=== PATIENT | male | born 1945 | race African-American/Black ===

== ENCOUNTER 2016-10-14 13:29 | Inpatient (IN) | payer MEDICARE, OTHER ==
[2016-10-14] VITALS (8 sets, daily range): BP systolic 97–131; BP diastolic 35–54
[~2016-10-14] VITALS: Ht 167.6 cm; Wt 63.5 kg
[2016-10-14 13:55] LABS: BASOPHILS % (AUTO) 0.9 % (0.0-2.0); LYMPHOCYTES % (AUTO) 5.8 % (20.0-45.0); MEAN CORPUSCULAR HEMOGLOBIN 29.9 PG (27.0-31.0); MEAN CORPUSCULAR VOLUME 96 FL (80-99); MEAN PLATELET VOLUME 7.9 FL (6.5-10.1); MONOCYTES % (AUTO) 10.5 % (1.0-10.0); NEUTROPHILS % (AUTO) 82.7 % (45.0-75.0); PLATELET COUNT 218 K/UL (150-450); RED BLOOD COUNT 3.97 M/UL (4.70-6.10); RED CELL DISTRIBUTION WIDTH 12.5 % (11.6-14.8)
[2016-10-14 14:14] LABS: ALBUMIN/GLOBULIN RATIO 0.9 (1.0-2.7); CALCIUM 8.2 mg/dL (8.6-10.2); CREATININE 1.3 mg/dL (0.7-1.2); GLOMERULAR FILTRATION RATE 54.9 mL/min (>60); POTASSIUM 3.7 mEQ/L (3.4-4.9); TOTAL PROTEIN 7.6 g/dL (6.6-8.7); TROPONIN I < 0.30 ng/mL (<=0.30)
--- NOTE | 2016-10-14 14:28 | Emergency Room Report ---
History of Present Illness General Chief Complaint: Dyspnea/Respdistress Source: EMS (RAGHAVENDRA NAVARRO M.D.) Present Illness HPI 62-year-old male brought to ED for evaluation. Per EMS patient was feeling short of breath today and increasingly weak for the last 2 days. states that patient had stroke last month. Patient was treated at [facility]. Patient was treated and subsequently discharged to home. states that patient has regained most of his weakness from the stroke. Upon arrival patient states he feels short of breath. Denies chest pain. Denies fevers or chills. Per EMS patient has increased crackles in the lungs. No other aggravating or relieving factors. Denies any other associated symptoms (RAGHAVENDRA NAVARRO M.D.) Allergies: Coded Allergies: No Known Allergies (Unverified , 10/14/16) Patient History Past Medical History: DM, HTN, CVA/TIA Pertinent Family History: none Social History: Denies: alcohol use, drug use, smoking Immunizations: UTD Reviewed Nursing Documentation: PMH: Agreed, PSxH: Agreed (RAGHAVENDRA NAVARRO M.D.) Nursing Documentation-PMH Past Medical History: No History, Except For Hx Cardiac Problems: Yes Hx Hypertension: Yes Hx Diabetes: Yes Hx Cerebrovascular Accident: Yes (RAGHAVENDRA NAVARRO M.D.) Review of Systems All Other Systems: negative except mentioned in HPI (RAGHAVENDRA NAVARRO M.D.) Physical Exam Vital Signs Date Time Temp Pulse Resp B/P Pulse Ox O2 Delivery O2 Flow Rate FiO2 10/14/16 13:20 100.8 110 36 135/68 98 Non-Rebreather 15.0 Sp02 EP Interpretation: reviewed, normal General Appearance: lethargic, thin Head: normocephalic ENT: normal ENT inspection, normal voice Respiratory: decreased breath sounds, crackles Cardiovascular #1: no edema, tachycardia Gastrointestinal: normal bowel sounds, non tender, soft, non-distended, no guarding, no rebound Rectal: deferred Genitourinary: no CVA tenderness Musculoskeletal: normal inspection Neurologic: responsive, motor strength/tone normal, sensory intact, speech normal, other - lethargic Psychiatric: other - lethargic Skin: normal inspection Lymphatic: normal inspection (RAGHAVENDRA NAVARRO M.D.) Medical Decision Making Diagnostic Impression: Primary Impression: Pneumonia Qualified Codes: J18.9 - Pneumonia, unspecified organism Additional Impression: ARF (acute renal failure) Qualified Codes: N17.9 - Acute kidney failure, unspecified Labs Test 10/14/16 13:40 White Blood Count 17.0 K/UL (4.8-10.8) Red Blood Count 3.97 M/UL (4.70-6.10) Hemoglobin 11.9 G/DL (14.2-18.0) Hematocrit 38.2 % (42.0-52.0) Mean Corpuscular Volume 96 FL (80-99) Mean Corpuscular Hemoglobin 29.9 PG (27.0-31.0) Mean Corpuscular Hemoglobin Concent 31.0 G/DL (32.0-36.0) Red Cell Distribution Width 12.5 % (11.6-14.8) Platelet Count 218 K/UL (150-450) Mean Platelet Volume 7.9 FL (6.5-10.1) Neutrophils (%) (Auto) 82.7 % (45.0-75.0) Lymphocytes (%) (Auto) 5.8 % (20.0-45.0) Monocytes (%) (Auto) 10.5 % (1.0-10.0) Eosinophils (%) (Auto) 0.0 % (0.0-3.0) Basophils (%) (Auto) 0.9 % (0.0-2.0) Sodium Level 144 mEQ/L (135-145) Potassium Level 3.7 mEQ/L (3.4-4.9) Chloride Level 97 mEQ/L (98-107) Carbon Dioxide Level 26 mEQ/L (20-30) Anion Gap 21 (5-15) Blood Urea Nitrogen 33 mg/dL (7-23) Creatinine 1.3 mg/dL (0.7-1.2) Estimat Glomerular Filtration Rate 54.9 mL/min (>60) Glucose Level 201 mg/dL (74-106) Lactic Acid Level 1.20 mmol/L (0.66-2.22) Calcium Level 8.2 mg/dL (8.6-10.2) Total Bilirubin 0.3 mg/dL (0.0-1.2) Aspartate Amino Transf (AST/SGOT) 89 U/L (5-40) Alanine Aminotransferase (ALT/SGPT) 25 U/L (3-41) Alkaline Phosphatase 90 U/L (40-129) Creatine Kinase MB 4.0 ng/mL (< 6.7) Troponin I < 0.30 ng/mL (<=0.30) Pro-B-Type Natriuretic Peptide 536 pg/mL (0-125) Total Protein 7.6 g/dL (6.6-8.7) Albumin 3.7 g/dL (3.5-5.2) Globulin 3.9 g/dL Albumin/Globulin Ratio 0.9 (1.0-2.7) (RAGHAVENDRA NAVARRO M.D.) ER Course See note from Dr. Navarro. Patient with respiratory failure. BIPAP ordered and O2 sats better. Attempt to discuss intubation (not needed). never discussed and patient does not seem to understand. Patient febrile. Tylenol ordered and continued hydration. Vancomycin ordered as patient with recent hospitalization. Discussed with Rodrigo HURST ([place]). Patient re-examined before going to ICU. Easily roused, not speaking. Airway stable at this time. (Anastacio Sparks M.D.) EKG Diagnostic Results Rate: tachycardiac Rhythm: NSR ST Segments: no acute changes ASA given to the pt in ED: No (RAGHAVENDRA NAVARRO M.D.) Rhythm Strip Diag. Results EP Interpretation: yes Rhythm: NSR, no PVC's, no ectopy (RAGHAVENDRA NAVARRO M.D.) Chest X-Ray Diagnostic Results EP Interpretation: Yes Findings: no pneumothorax, no acute cardiopulmonary disease, other - RLL infiltrate Number of Views: 1 (RAGHAVENDRA NAVARRO M.D.) Last Vital Signs Date Time Temp Pulse Resp B/P Pulse Ox O2 Delivery O2 Flow Rate FiO2 10/14/16 13:52 113 43 119/51 100 Non-Rebreather 15.0 10/14/16 13:20 100.8 Status: improved (RAGHAVENDRA NAVARRO M.D.) Last Vital Signs Date Time Temp Pulse Resp B/P Pulse Ox O2 Delivery O2 Flow Rate FiO2 10/14/16 16:48 102 33 100/87 99 Bi-pap 80 10/14/16 15:58 102.0 10/14/16 14:45 15.0 Status: improved (Anastacio Sparks M.D.) Disposition: ADMITTED INPATIENT Condition: Critical Referrals: [facility] (PCP) RAGHAVENDRA NAVARRO M.D. Oct 14, 2016 14:28 Anastacio Sparks M.D. Oct 14, 2016 15:24
[2016-10-14 14:54] LABS: ABG ALLEN TEST POSITIVE; ABG BASE EXCESS -1.8; ABG PCO2 71.7 mmHg (35.0-45.0)
[2016-10-14] MEDS ORDERED: Azithromycin 500 MG in NS 275 ML IV ONE (15:00)
[2016-10-14] MEDS ORDERED: Cefepime HCl 1 GM in NS 55 ML IV ONE (15:00)
[2016-10-14] MEDS ORDERED: Azithromycin Inj IV ONE (15:03)
[2016-10-14] MEDS ORDERED: Tubing IV Secondary IV ONE (15:04)
[2016-10-14] MEDS ORDERED: Cefepime 1gm vial ONE (15:04)
[2016-10-14] MEDS ORDERED: NS 275 ML ONE (15:04)
[2016-10-14] MEDS ORDERED: NS 55 ML IV ONE (15:04)
[2016-10-14] MEDS ORDERED: Tubing IV Cassette IV ONE (15:04)
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
[2016-10-14] MEDS ORDERED: Acetaminophen 650 MG SUPP RECTAL ONE (15:15)
[2016-10-14] MEDS ORDERED: Vancomycin 1 GM in D5W 275 ML IVPB ONE (15:15)
[2016-10-14] MEDS ORDERED: RISPERDAL1 MG PO (15:20)
[2016-10-14] MEDS ORDERED: PHENYTOIN100 MG/4 M ORAL (15:20)
[2016-10-14] MEDS ORDERED: METFORMIN HCL850 M1 ORAL (15:20)
[2016-10-14] MEDS ORDERED: ATORVASTATIN CA20 MG ORAL (15:20)
[2016-10-14] MEDS ORDERED: LISINOPRIL10 MG ORAL (15:20)
[2016-10-14] MEDS ORDERED: PHENOBARBITAL30 MG ORAL (15:20)
[2016-10-14] MEDS ORDERED: GLIPIZIDE5 MG ORAL (15:20)
[2016-10-14] MEDS ORDERED: CLOPIDOGREL75 MG ORAL (15:20)
[2016-10-14] MEDS ORDERED: ZANTAC150 MG ORAL (15:21)
[2016-10-14] MEDS ORDERED: URSODIOL300 MG ORAL (15:21)
[2016-10-14] MEDS ORDERED: AMLODIPINE BESY10 MG ORAL (15:21)
[2016-10-14] MEDS ORDERED: OXYCODONE HCL5 M2 ORAL (15:21)
[2016-10-14 15:22] LABS: APPEARANCE,URINE CLEAR; KETONES,URINE 3+ (NEGATIVE); LEUKOCYTE ESTERASE ,URINE NEGATIVE (NEGATIVE); NITRITE,URINE NEGATIVE (NEGATIVE); PH,URINE 5 (4.5-8.0); PROTEIN,URINE 3+ (NEGATIVE); UROBILINOGEN,URINE NORMAL MG/DL (0.0-1.0)
[2016-10-14 15:51] LABS: AMORPHOUS SEDIMENT,UR MODERATE /LPF; BACTERIA,URINE MODERATE /HPF
[2016-10-14] MEDS ORDERED: Vancomycin 1gm inj IVPB ONE (16:37)
--- NOTE | 2016-10-14 17:21 | Pulmonolgy Critical Care Note ---
Critical Care - Asmt/Plan Problems: (1) Respiratory failure, acute (2) ARF (acute renal failure) (3) Pneumonia Respiratory: monitor respiratory rate, adjust FIO2, CXR Cardiac: continue to monitor HR/BP Renal: F/U I&O, keep IV fluid, check electrolytes Infectious Disease: check cultures, continue antibiotics Gastrointestinal: continue feedings/current rate Endocrine: monitor blood sugar, continue sliding scale insulin Hematologic: monitor H/H, transfuse if hgb<8.5 Neurologic: PRN Ativan, PRN Morphine, keep patient comfortable Prophylaxis: Protonix, Heparin Discussed with: consultants, case linerutility manager - Objective Last 24 Hour Vital Signs Date Time Temp Pulse Resp B/P Pulse Ox O2 Delivery O2 Flow Rate FiO2 10/14/16 16:48 102 33 100/87 99 Bi-pap 80 10/14/16 16:40 101 32 100 Facial 60 10/14/16 15:58 102.0 10/14/16 15:44 80 10/14/16 15:10 106 31 Bi-pap 100 10/14/16 15:10 106 31 99 Facial 80 10/14/16 15:09 103 26 131/53 99 Bi-pap 80 10/14/16 14:45 103.3 112 40 125/49 100 Non-Rebreather 15.0 10/14/16 13:52 113 43 119/51 100 Non-Rebreather 15.0 10/14/16 13:47 113 43 Non-Rebreather 15.0 10/14/16 13:20 100.8 110 36 135/68 98 Non-Rebreather 15.0 Status: awake Condition: critical, grave Neck: full ROM Lungs: clear Heart: HR/BP stable, HR/BP unstable Abdomen: soft, non-tender, feeding tube Extremities: no C/C/E, edema Critical Care - Subjective ICU Day: 1 Interval Events: 62-year-old male brought to ED for evaluation of short of breath today and increasingly weak for the last 2 days. states that patient had stroke last month. states that patient has regained most of his weakness from the stroke. Upon arrival patient states he feels short of breath. He was in respiratory failure and was put on bipap and transferred to ICU. FI02: 80 Vent Support Breath Rate: 10 Sputum Amount: None CXR: RLL infiltrate Labs: Laboratory Tests Test 10/14/16 13:40 10/14/16 14:45 10/14/16 14:48 White Blood Count 17.0 K/UL (4.8-10.8) H Red Blood Count 3.97 M/UL (4.70-6.10) L Hemoglobin 11.9 G/DL (14.2-18.0) L Hematocrit 38.2 % (42.0-52.0) L Mean Corpuscular Volume 96 FL (80-99) Mean Corpuscular Hemoglobin 29.9 PG (27.0-31.0) Mean Corpuscular Hemoglobin Concent 31.0 G/DL (32.0-36.0) L Red Cell Distribution Width 12.5 % (11.6-14.8) Platelet Count 218 K/UL (150-450) Mean Platelet Volume 7.9 FL (6.5-10.1) Neutrophils (%) (Auto) 82.7 % (45.0-75.0) H Lymphocytes (%) (Auto) 5.8 % (20.0-45.0) L Monocytes (%) (Auto) 10.5 % (1.0-10.0) H Eosinophils (%) (Auto) 0.0 % (0.0-3.0) Basophils (%) (Auto) 0.9 % (0.0-2.0) Sodium Level 144 mEQ/L (135-145) Potassium Level 3.7 mEQ/L (3.4-4.9) Chloride Level 97 mEQ/L (98-107) L Carbon Dioxide Level 26 mEQ/L (20-30) Anion Gap 21 (5-15) H Blood Urea Nitrogen 33 mg/dL (7-23) H Creatinine 1.3 mg/dL (0.7-1.2) H Estimat Glomerular Filtration Rate 54.9 mL/min (>60) Glucose Level 201 mg/dL (74-106) H Lactic Acid Level 1.20 mmol/L (0.66-2.22) Calcium Level 8.2 mg/dL (8.6-10.2) L Total Bilirubin 0.3 mg/dL (0.0-1.2) Aspartate Amino Transf (AST/SGOT) 89 U/L (5-40) H Alanine Aminotransferase (ALT/SGPT) 25 U/L (3-41) Alkaline Phosphatase 90 U/L (40-129) Total Creatine Kinase 4581 U/L (38-174) H Creatine Kinase MB 4.0 ng/mL (< 6.7) Creatine Kinase MB Relative Index 0.0 Troponin I < 0.30 ng/mL (<=0.30) Pro-B-Type Natriuretic Peptide 536 pg/mL (0-125) H Total Protein 7.6 g/dL (6.6-8.7) Albumin 3.7 g/dL (3.5-5.2) Globulin 3.9 g/dL Albumin/Globulin Ratio 0.9 (1.0-2.7) L Urine Color Pale yellow Urine Appearance Clear Urine pH 5 (4.5-8.0) Urine Specific [place] 1.025 (1.005-1.035) Urine Protein 3+ (NEGATIVE) H Urine Glucose (UA) Negative (NEGATIVE) Urine Ketones 3+ (NEGATIVE) H Urine Occult Blood 5+ (NEGATIVE) H Urine Nitrite Negative (NEGATIVE) Urine Bilirubin Negative (NEGATIVE) Urine Urobilinogen Normal MG/DL (0.0-1.0) Urine Leukocyte Esterase Negative (NEGATIVE) Urine RBC 10-15 /HPF (0 - 0) H Urine WBC 5-10 /HPF (0 - 0) H Urine Squamous Epithelial Cells None /LPF (NONE/OCC) Urine Amorphous Sediment Moderate /LPF (NONE) H Urine Bacteria Moderate /HPF (NONE) H Arterial Blood pH 7.201 (7.350-7.450) Arterial Blood Partial Pressure CO2 71.7 mmHg (35.0-45.0) *H Arterial Blood Partial Pressure O2 95.3 mmHg (75.0-100.0) Arterial Blood HCO3 27.5 mmol/L (22.0-26.0) H Arterial Blood Oxygen Saturation 94.9 % (92.0-98.0) Arterial Blood Base Excess -1.8 Hi Test Positive BELTRAN OROSCO Oct 14, 2016 17:20
[2016-10-14] MEDS ORDERED: Nitroglycerin Subl 0.4mg tab (Bottle Of 25) SL PRN (17:30)
[2016-10-14] MEDS ORDERED: Miralax 17gm pkt ORAL PRN (17:30)
[2016-10-14] MEDS ORDERED: DuoNeb 0.5-3(2.5)mg/3ml neb HHN PRN (17:30)
[2016-10-14] MEDS ORDERED: Mylanta II UD 30ml ORAL PRN (17:30)
[2016-10-14] MEDS: Vancomycin 1gm in D5W 275ml IVPB SCH (20:24)
[2016-10-14] MEDS: Phenytoin Susp 100mg/4ml ORAL SCH (20:32)
[2016-10-14] MEDS: PHENobarbital 32.4mg tab ORAL SCH (20:55)
[2016-10-14] MEDS: NovoLOG Insulin Flexpen SUBQ SCH (20:58)
[2016-10-14] MEDS: Heparin 5000 units/ml inj SUBQ SCH (21:00)
[2016-10-14] MEDS ORDERED: Cefepime HCl 1 GM in D5W 55 ML IV SCH (22:00)
[2016-10-15] VITALS (29 sets, daily range): BP systolic 54–160; BP diastolic 23–66
[2016-10-15 05:50] LABS: MEAN CORPUSCULAR HEMOGLOBIN 29.9 PG (27.0-31.0); MEAN CORPUSCULAR HGB CONC 30.6 G/DL (32.0-36.0); MEAN CORPUSCULAR VOLUME 98 FL (80-99); MEAN PLATELET VOLUME 8.1 FL (6.5-10.1); PLATELET COUNT 178 K/UL (150-450); RED CELL DISTRIBUTION WIDTH 12.7 % (11.6-14.8); WHITE BLOOD COUNT 20.6 K/UL (4.8-10.8)
[2016-10-15 06:00] LABS: INR 1.3 (0.9-1.1); PROTHROMBIN TIME 12.8 SEC (9.30-11.50)
[2016-10-15 06:05] LABS: ALBUMIN/GLOBULIN RATIO 0.7 (1.0-2.7); CALCIUM 7.1 mg/dL (8.6-10.2); GLOMERULAR FILTRATION RATE 40.5 mL/min (>60); MAGNESIUM 1.4 mg/dL (1.7-2.5); POTASSIUM 4.3 mEQ/L (3.4-4.9); TOTAL PROTEIN 6.2 g/dL (6.6-8.7)
[2016-10-15] MEDS: NovoLOG Insulin Flexpen SUBQ SCH ×4 (06:08→20:37)
[2016-10-15 08:14] LABS: BAND NEUTROPHILS % (MANUAL) 3 % (0-8); LYMPHOCYTES % (MANUAL) 12 % (20-45); NEUTROPHILS % (MANUAL) 75 % (45-75); TOTAL CELLS COUNTED 100
[2016-10-15 08:15] LABS: BASOPHILS % (MANUAL) 0 % (0-2); EOSINOPHILS % (MANUAL) 0 % (0-3); PLATELET ESTIMATE ADEQUATE; PLATELET MORPHOLOGY NORMAL
[2016-10-15 08:17] LABS: HYPOCHROMASIA 1+
[2016-10-15] MEDS: PHENobarbital 32.4mg tab ORAL SCH ×3 (09:00→17:09)
[2016-10-15] MEDS: Phenytoin Susp 100mg/4ml ORAL SCH ×3 (10:00→17:08)
[2016-10-15] MEDS: Heparin 5000 units/ml inj SUBQ SCH ×2 (10:03→20:36)
--- NOTE | 2016-10-15 10:41 | Pulmonology Progress Note ---
Assessment/Plan Problems: (1) Respiratory failure, acute (2) ARF (acute renal failure) (3) Pneumonia (4) History of CVA (cerebrovascular accident) Assessment/Plan titrate bipap keep in icu check sputum titrate fio2 to sat of 92% chest Pt will need swallow study when better. Subjective Interval Events: on bipap, looks comfortable Allergies: Coded Allergies: No Known Allergies (Unverified , 10/14/16) Objective Last 24 Hour Vital Signs Date Time Temp Pulse Resp B/P Pulse Ox O2 Delivery O2 Flow Rate FiO2 10/15/16 10:05 106 16 136/66 98 Bi-pap 60 10/15/16 09:03 103 17 99 Facial 60 10/15/16 09:00 106 119/57 10/15/16 09:00 102 27 157/58 97 Bi-pap 60 10/15/16 08:00 102 10/15/16 08:00 98.8 109 20 143/58 98 Bi-pap 60 10/15/16 08:00 60 10/15/16 07:29 105 36 95 Facial 60 10/15/16 07:07 98 30 160/56 98 Bi-pap 60 10/15/16 06:00 94 33 122/54 98 Bi-pap 60 10/15/16 05:13 96 46 99 Facial 60 10/15/16 05:00 94 32 116/46 100 Bi-pap 60 10/15/16 04:00 60 10/15/16 04:00 94 10/15/16 04:00 99.3 90 33 123/63 97 Bi-pap 60 10/15/16 03:30 100 52 96 Facial 60 10/15/16 03:00 95 28 108/55 97 Bi-pap 60 10/15/16 02:00 92 32 115/50 96 Bi-pap 60 10/15/16 01:01 95 30 107/50 95 Bi-pap 60 10/15/16 00:58 94 41 96 Facial 60 10/15/16 00:00 95 10/15/16 00:00 60 10/15/16 00:00 99.8 100 35 113/48 95 Bi-pap 60 10/14/16 23:19 90 44 95 Facial 60 10/14/16 23:00 95 32 101/45 94 Bi-pap 60 10/14/16 22:00 98 33 117/35 93 Bi-pap 60 10/14/16 21:00 90 32 108/36 93 Bi-pap 60 10/14/16 20:34 96 45 97 Facial 60 10/14/16 20:18 90 10/14/16 20:15 60 10/14/16 20:14 60 10/14/16 20:00 99.2 92 25 97/45 97 Bi-pap 60 10/14/16 19:06 100 44 99 Facial 60 10/14/16 19:00 100 24 104/54 97 Bi-pap 60 10/14/16 16:48 102 33 100/87 99 Bi-pap 80 10/14/16 16:40 101 32 100 Facial 60 10/14/16 15:58 102.0 10/14/16 15:44 80 10/14/16 15:10 106 31 Bi-pap 100 10/14/16 15:10 106 31 99 Facial 80 10/14/16 15:09 103 26 131/53 99 Bi-pap 80 10/14/16 14:45 103.3 112 40 125/49 100 Non-Rebreather 15.0 10/14/16 13:52 113 43 119/51 100 Non-Rebreather 15.0 10/14/16 13:47 113 43 Non-Rebreather 15.0 10/14/16 13:20 100.8 110 36 135/68 98 Non-Rebreather 15.0 Intake and Output 10/14/16 10/15/16 18:59 06:59 Intake Total 1955 ml 3155.208 ml Output Total 145 ml Balance 1810 ml 3155.208 ml Intake Oral 0 ml IV Total 1955 ml 3105.208 ml Other 50 ml Output Urine Total 145 ml # Voids 75 435 General Appearance: WD/WN HEENT: normocephalic, anicteric Respiratory/Chest: chest wall non-tender, accessory muscle use, crackles/rales Cardiovascular: normal peripheral pulses, normal rate Abdomen: normal bowel sounds, soft, non tender Genitourinary: normal external genitalia Extremities: no cyanosis Skin: no rash Neurologic/Psychiatric: interventional cardiologist II-XII grossly normal, no motor/sensory deficits Lymphatic: no neck adenopathy Musculoskeletal: normal muscle bulk Microbiology Date/Time Source Procedure Growth Status 10/14/16 14:45 Urine,Clean Catch Urine Culture - Preliminary NO GROWTH Resulted Laboratory Tests 10/14/16 13:40: White Blood Count 17.0H, Red Blood Count 3.97L, Hemoglobin 11.9L, Hematocrit 38.2L, Mean Corpuscular Volume 96, Mean Corpuscular Hemoglobin 29.9, Mean Corpuscular Hemoglobin Concent 31.0L, Red Cell Distribution Width 12.5, Platelet Count 218, Mean Platelet Volume 7.9, Neutrophils (%) (Auto) 82.7H, Lymphocytes (%) (Auto) 5.8L, Monocytes (%) (Auto) 10.5H, Eosinophils (%) (Auto) 0.0, Basophils (%) (Auto) 0.9, Sodium Level 144, Potassium Level 3.7, Chloride Level 97L, Carbon Dioxide Level 26, Anion Gap 21H, Blood Urea Nitrogen 33H, Creatinine 1.3H, Estimat Glomerular Filtration Rate 54.9, Glucose Level 201H, Lactic Acid Level 1.20, Calcium Level 8.2L, Total Bilirubin 0.3, Aspartate Amino Transf (AST/SGOT) 89H, Alanine Aminotransferase (ALT/SGPT) 25, Alkaline Phosphatase 90, Total Creatine Kinase 4581H, Creatine Kinase MB 4.0, Creatine Kinase MB Relative Index 0.0, Troponin I < 0.30, Pro-B-Type Natriuretic Peptide 536H, Total Protein 7.6, Albumin 3.7, Globulin 3.9, Albumin/Globulin Ratio 0.9L 10/14/16 14:45: Urine Color Pale yellow, Urine Appearance Clear, Urine pH 5, Urine Specific [place] 1.025, Urine Protein 3+H, Urine Glucose (UA) Negative, Urine Ketones 3+H , Urine Occult Blood 5+H, Urine Nitrite Negative, Urine Bilirubin Negative, Urine Urobilinogen Normal, Urine Leukocyte Esterase Negative, Urine RBC 10-15H, Urine WBC 5-10H, Urine Squamous Epithelial Cells None, Urine Amorphous Sediment ModerateH, Urine Bacteria ModerateH 10/14/16 14:48: Arterial Blood pH 7.201*L, Arterial Blood Partial Pressure CO2 71.7*H, Arterial Blood Partial Pressure O2 95.3, Arterial Blood HCO3 27.5H, Arterial Blood Oxygen Saturation 94.9, Arterial Blood Base Excess -1.8, Hi Test Positive 10/14/16 22:00: Urine Legionella Antigen [Pending] 10/15/16 04:20: White Blood Count 20.6H, Red Blood Count 3.40L, Hemoglobin 10.2L, Hematocrit 33.2L, Mean Corpuscular Volume 98, Mean Corpuscular Hemoglobin 29.9, Mean Corpuscular Hemoglobin Concent 30.6L, Red Cell Distribution Width 12.7, Platelet Count 178, Mean Platelet Volume 8.1, Neutrophils (%) (Auto) , Lymphocytes (%) (Auto) , Monocytes (%) (Auto) , Eosinophils (%) (Auto) , Basophils (%) (Auto) , Differential Total Cells Counted 100, Neutrophils % ( Manual) 75, Lymphocytes % (Manual) 12L, Monocytes % (Manual) 10, Eosinophils % ( Manual) 0, Basophils % (Manual) 0, Band Neutrophils 3, Platelet Estimate Adequate, Platelet Morphology Normal, Hypochromasia 1+, Prothrombin Time 12.8H, Prothromb Time International Ratio 1.3H, Activated Partial Thromboplast Time 36H , Sodium Level 143, Potassium Level 4.3, Chloride Level 103, Carbon Dioxide Level 17L, Anion Gap 23H, Blood Urea Nitrogen 40H, Creatinine 2.0#H, Estimat Glomerular Filtration Rate 40.5, Glucose Level 201H, Calcium Level 7.1L, Phosphorus Level 5.0H, Magnesium Level 1.4L, Total Bilirubin 0.3, Aspartate Amino Transf (AST/SGOT) 60H, Alanine Aminotransferase (ALT/SGPT) 22, Alkaline Phosphatase 76, Total Protein 6.2L, Albumin 2.7L, Globulin 3.5, Albumin/ Globulin Ratio 0.7L Current Medications Medications (Trade) Dose Ordered Sig/Obie Route PRN Reason Start Time Stop Time Status Last Admin Dose Admin Acetaminophen (Tylenol) 650 mg Q4H PRN ORAL fever 10/14/16 17:30 11/13/16 17:29 Al Hydroxide/Mg Hydroxide (Mylanta II) 30 ml Q6H PRN ORAL dyspepsia 10/14/16 17:30 11/13/16 17:29 Albuterol/ Ipratropium 3 ml 3 ml Q4H PRN HHN Shortness of Breath 10/14/16 17:30 10/19/16 17:29 Amlodipine Besylate (Norvasc) 10 mg DAILY ORAL 10/15/16 09:00 11/14/16 08:59 10/15/16 09:00 Cefepime HCl/ Dextrose (Maxipime/D5W) 55 ml @ 110 mls/hr Q24H IV 10/14/16 22:00 10/21/16 21:59 10/14/16 21:12 Clopidogrel Bisulfate (Plavix) 75 mg DAILY ORAL 10/15/16 09:00 11/14/16 08:59 10/15/16 10:00 Dextrose (Dextrose 50%) STAT PRN IV Hypoglycemia 10/14/16 17:30 11/13/16 17:29 Heparin Sodium (Porcine) (Heparin 5000 units/ml) 5,000 units EVERY 12 HOURS SUBQ 10/14/16 21:00 11/13/16 20:59 10/15/16 10:03 Insulin Aspart (NovoLOG) BEFORE MEALS AND HS SUBQ 10/14/16 21:00 11/13/16 20:59 10/15/16 06:08 Nitroglycerin (Ntg) 0.4 mg Q5MIN X 3 DOSES PRN SL Prn Chest Pain 10/14/16 17:30 11/13/16 17:29 Ondansetron HCl (Zofran) 4 mg Q6H PRN IVP Nausea & Vomiting 10/14/16 17:30 11/13/16 17:29 Phenobarbital (PHENobarbital) 32.4 mg THREE TIMES A DAY ORAL 10/14/16 18:00 11/13/16 17:59 10/15/16 09:00 Phenytoin (Dilantin) 100 mg TID ORAL 10/14/16 18:00 11/13/16 17:59 10/15/16 10:00 Polyethylene Glycol (Miralax) 17 gm DAILYPRN PRN ORAL Constipation 10/14/16 17:30 11/13/16 17:29 Risperidone (RisperDAL) 1 mg DAILY ORAL 10/15/16 09:00 11/14/16 08:59 10/15/16 10:01 Sodium Chloride (Sodium Chloride 1000ml bag) 1,000 ml @ 300 mls/hr Q3H20M IV 10/14/16 15:30 11/13/16 15:29 10/15/16 08:00 Temazepam (Restoril) 15 mg HSPRN PRN ORAL Insomnia 10/14/16 17:30 10/21/16 17:29 Vancomycin HCl 1 ea 1 ea DAILY PRN MISC Per rx protocol 10/14/16 17:30 11/13/16 17:29 Vancomycin HCl/ Dextrose (Vancomycin/D5W) 275 ml @ 183.708 mls/hr Q24H IVPB 10/14/16 20:00 10/19/16 19:59 10/14/16 20:24 BELTRAN OROSCO Oct 15, 2016 10:41
--- NOTE | 2016-10-15 11:28 | Consultation ---
Consult Note Consult Note ID Dic# [id number] SOM PEREZ M.D. Oct 15, 2016 11:28
--- NOTE | 2016-10-15 13:34 | Diagnostic Imaging Report ---
Indication: DYSPNEA Technique: One view of the chest Comparison: 10/14/2016 Findings: There is increased opacity of the right lung base, likely reflecting increased pleural fluid and/or consolidation. Hazy opacity in the left lung base persists. The heart is borderline enlarged. The aorta is tortuous and calcified Impression: Over one day, increasing pleural and/or parenchymal disease at the right lung base Other stable findings as described
[2016-10-15] MEDS: Piperacillin/Tazobactam 4.5 GM in D5W 110 ML IVPB SCH ×2 (14:04→21:57)
[2016-10-15 14:37] LABS: ABG ALLEN TEST POSITIVE; ABG BASE EXCESS -8.3
--- NOTE | 2016-10-15 14:56 | History & Physical ---
History and Physical History & Physicial The patient was seen and examined at bedside and all new and available data was reviewed in the patients chart. Last 24 Hour Vital Signs Date Time Temp Pulse Resp B/P Pulse Ox O2 Delivery O2 Flow Rate FiO2 10/15/16 14:00 119 31 136/46 98 Venturi Mask 55 10/15/16 13:00 121 32 128/51 98 Venturi Mask 55 10/15/16 12:00 98.4 117 30 127/52 88 Venturi Mask 55 10/15/16 12:00 116 10/15/16 11:00 113 32 154/50 98 Venturi Mask 55 10/15/16 10:05 106 16 136/66 98 Bi-pap 60 10/15/16 09:03 103 17 99 Facial 60 10/15/16 09:00 106 119/57 10/15/16 09:00 102 27 157/58 97 Bi-pap 60 10/15/16 08:00 102 10/15/16 08:00 98.8 109 20 143/58 98 Bi-pap 60 10/15/16 08:00 60 10/15/16 07:29 105 36 95 Facial 60 10/15/16 07:07 98 30 160/56 98 Bi-pap 60 10/15/16 06:00 94 33 122/54 98 Bi-pap 60 10/15/16 05:13 96 46 99 Facial 60 10/15/16 05:00 94 32 116/46 100 Bi-pap 60 10/15/16 04:00 60 10/15/16 04:00 94 10/15/16 04:00 99.3 90 33 123/63 97 Bi-pap 60 10/15/16 03:30 100 52 96 Facial 60 10/15/16 03:00 95 28 108/55 97 Bi-pap 60 10/15/16 02:00 92 32 115/50 96 Bi-pap 60 10/15/16 01:01 95 30 107/50 95 Bi-pap 60 10/15/16 00:58 94 41 96 Facial 60 10/15/16 00:00 95 10/15/16 00:00 60 10/15/16 00:00 99.8 100 35 113/48 95 Bi-pap 60 10/14/16 23:19 90 44 95 Facial 60 10/14/16 23:00 95 32 101/45 94 Bi-pap 60 10/14/16 22:00 98 33 117/35 93 Bi-pap 60 10/14/16 21:00 90 32 108/36 93 Bi-pap 60 10/14/16 20:34 96 45 97 Facial 60 10/14/16 20:18 90 10/14/16 20:15 60 10/14/16 20:14 60 10/14/16 20:00 99.2 92 25 97/45 97 Bi-pap 60 10/14/16 19:06 100 44 99 Facial 60 10/14/16 19:00 100 24 104/54 97 Bi-pap 60 10/14/16 16:48 102 33 100/87 99 Bi-pap 80 10/14/16 16:40 101 32 100 Facial 60 10/14/16 15:58 102.0 10/14/16 15:44 80 10/14/16 15:10 106 31 Bi-pap 100 10/14/16 15:10 106 31 99 Facial 80 10/14/16 15:09 103 26 131/53 99 Bi-pap 80 (Patient was seen earlier today. Signature timestamp does not reflect patient encounter time) Bubba Daniels MD, MD Oct 15, 2016 14:56
[2016-10-15 15:56] LABS: ABG ALLEN TEST POSITIVE; ABG BASE EXCESS -10.6
[2016-10-15] MEDS ORDERED: Tubing IV Secondary IV ONE (17:20)
[2016-10-15] MEDS ORDERED: NS 275ml ONE (17:20)
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
[2016-10-15 19:26] LABS: ABG ALLEN TEST POSITIVE; ABG BASE EXCESS -14.3; ABG PCO2 59.6 mmHg (35.0-45.0)
[2016-10-15] MEDS: Vancomycin 1gm in D5W 275ml IVPB SCH (20:35)
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
[2016-10-15] MEDS ORDERED: Sodium Bicarbonate 150 ML in D5W 1000ml 1,000 ML IV ONE (21:00)
[2016-10-15 21:34] LABS: GLOMERULAR FILTRATION RATE 25.3 mL/min (>60); POTASSIUM 4.6 mEQ/L (3.4-4.9)
--- NOTE | 2016-10-15 21:46 | Emergency Room Report ---
History of Present Illness General Chief Complaint: Dyspnea/Respdistress Source: Family Member Present Illness Allergies: Coded Allergies: No Known Allergies (Unverified , 10/14/16) Nursing Documentation-[facility] Past Medical History: No History, Except For Hx Cardiac Problems: Yes - CVA Hx Hypertension: Yes Hx Diabetes: Yes Hx Cerebrovascular Accident: Yes Physical Exam Vital Signs Date Time Temp Pulse Resp B/P Pulse Ox O2 Delivery O2 Flow Rate FiO2 10/14/16 13:20 100.8 110 36 135/68 98 Non-Rebreather 15.0 10/14/16 15:09 80 Procedures Intubation Intubation : Consent: Emergent Time of Intubation: 08:55 Intubation Method: orotracheal Tube Size (cm): 8.0 Medications: Etomidate, Succinylcholine Breath Sounds after Intubation: equal Intubation Complications: no complications Post Intubation Xray: Yes Attempts: One Patient Tolerated: Well Complications: None Medical Decision Making Diagnostic Impression: Primary Impression: Pneumonia Qualified Codes: J18.9 - Pneumonia, unspecified organism Additional Impression: ARF (acute renal failure) Qualified Codes: N17.9 - Acute kidney failure, unspecified ER Course Was contacted and they patient. Patient was noted to increase CO2 and respiratory failure on BiPAP. Patient was discussed with Dr. Osullivan. Patient was intubated after The times one. Patient tolerated well. Last Vital Signs Date Time Temp Pulse Resp B/P Pulse Ox O2 Delivery O2 Flow Rate FiO2 10/15/16 21:22 100 10/15/16 21:18 77 16 10/15/16 21:00 54/23 96 Bi-pap 10/15/16 19:00 99.0 10/14/16 14:45 15.0 Status: unchanged Disposition: ADMITTED INPATIENT Condition: Critical Referrals: [facility] (PCP) Kobi Cortez Oct 15, 2016 21:46
[2016-10-15] MEDS: Sodium Bicarbonate 150 ML in D5W 1000ml 1,000 ML IV SCH (21:55)
[2016-10-15] MEDS ORDERED: Heparin 2000 units/Ns 1000ml INJ ONE (22:00)
[2016-10-15] MEDS ORDERED: DOPamine 400mg/250ml 250 ML IV SCH (22:00)
[2016-10-15 22:29] LABS: ABG ALLEN TEST POSITIVE; ABG BASE EXCESS -17.2; ABG PCO2 47.1 mmHg (35.0-45.0)
[2016-10-15] MEDS ORDERED: Sodium Bicarbonate 8.4% 50ml Inj IV ONE (23:00)
[2016-10-15] MEDS ORDERED: Lidocaine 1% Plain 30 ml INJ ONE (23:00)
[2016-10-15] MEDS ORDERED: Sodium Bicarbonate 8.4% 50ml Carp IV ONE (23:30)
[2016-10-16] VITALS (40 sets, daily range): BP systolic 84–146; BP diastolic 28–60
[2016-10-16] MEDS: Piperacillin/Tazobactam 4.5 GM in D5W 110 ML IVPB SCH ×2 (05:48→13:19)
[2016-10-16] MEDS: NovoLOG Insulin Flexpen SUBQ SCH ×3 (05:50→18:19)
[2016-10-16 05:58] LABS: BASOPHILS % (AUTO) 0.5 % (0.0-2.0); LYMPHOCYTES % (AUTO) 12.3 % (20.0-45.0); MEAN CORPUSCULAR HEMOGLOBIN 30.2 PG (27.0-31.0); MEAN CORPUSCULAR HGB CONC 30.3 G/DL (32.0-36.0); MEAN CORPUSCULAR VOLUME 99 FL (80-99); MEAN PLATELET VOLUME 8.2 FL (6.5-10.1); MONOCYTES % (AUTO) 6.9 % (1.0-10.0); NEUTROPHILS % (AUTO) 80.3 % (45.0-75.0); PLATELET COUNT 161 K/UL (150-450); RED BLOOD COUNT 3.13 M/UL (4.70-6.10); RED CELL DISTRIBUTION WIDTH 12.9 % (11.6-14.8); WHITE BLOOD COUNT 15.2 K/UL (4.8-10.8)
[2016-10-16 06:26] LABS: INR 1.4 (0.9-1.1); PROTHROMBIN TIME 14.7 SEC (9.30-11.50)
[2016-10-16 06:41] LABS: ALBUMIN/GLOBULIN RATIO 0.6 (1.0-2.7); CALCIUM 7.1 mg/dL (8.6-10.2); CREATININE 3.5 mg/dL (0.7-1.2); GLOMERULAR FILTRATION RATE 21.2 mL/min (>60); MAGNESIUM 1.4 mg/dL (1.7-2.5); PHOSPHORUS 4.7 mg/dL (2.5-4.8); POTASSIUM 4.3 mEQ/L (3.4-4.9); TOTAL PROTEIN 5.6 g/dL (6.6-8.7)
[2016-10-16 06:59] LABS: TROPONIN I 0.95 ng/mL (<=0.30)
[2016-10-16] MEDS: Phenytoin Susp 100mg/4ml ORAL SCH ×3 (08:38→18:18)
[2016-10-16] MEDS: Heparin 5000 units/ml inj SUBQ SCH ×2 (08:38→20:24)
[2016-10-16] MEDS: Sodium Bicarbonate 150 ML in D5W 1000ml 1,000 ML IV SCH ×2 (08:38→20:22)
[2016-10-16] MEDS: PHENobarbital 32.4mg tab ORAL SCH ×3 (08:39→18:18)
--- NOTE | 2016-10-16 10:56 | Pulmonolgy Critical Care Note ---
Critical Care - Asmt/Plan Problems: (1) Respiratory failure, acute (2) ARF (acute renal failure) (3) Pneumonia (4) NSTEMI (non-ST elevated myocardial infarction) (5) History of CVA (cerebrovascular accident) Respiratory: monitor respiratory rate, adjust FIO2, CXR Cardiac: continue to monitor HR/BP Renal: F/U I&O, keep IV fluid, check electrolytes Infectious Disease: check cultures, continue antibiotics Gastrointestinal: continue feedings/current rate Endocrine: monitor blood sugar, check TSH Hematologic: monitor H/H Neurologic: PRN Ativan, PRN Morphine Affect: PRN ativan Disposition: keep in ICU Notes 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: 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, renal Discussed with: nurses, consultants Critical Care - Objective Last 24 Hour Vital Signs Date Time Temp Pulse Resp B/P Pulse Ox O2 Delivery O2 Flow Rate FiO2 10/16/16 09:36 86 20 40 10/16/16 09:00 88 20 114/56 100 Mechanical Ventilator 40 10/16/16 08:39 90/48 10/16/16 08:00 87 10/16/16 08:00 99.9 84 16 92/47 100 Mechanical Ventilator 40 10/16/16 08:00 40 10/16/16 07:29 86 23 40 10/16/16 07:00 86 20 109/52 100 Mechanical Ventilator 100 10/16/16 06:00 87 20 94/48 100 Mechanical Ventilator 100 10/16/16 05:15 98 20 109/49 100 Mechanical Ventilator 100 10/16/16 05:06 99 20 40 10/16/16 05:00 98 20 100/51 100 Mechanical Ventilator 100 10/16/16 04:45 98 20 100/51 100 Mechanical Ventilator 100 10/16/16 04:30 99 20 99/53 100 Mechanical Ventilator 100 10/16/16 04:15 99 20 104/47 100 Mechanical Ventilator 100 10/16/16 04:00 97.8 99 20 94/50 100 Mechanical Ventilator 100 10/16/16 04:00 99 10/16/16 04:00 100 10/16/16 03:45 100 20 96/50 100 Mechanical Ventilator 100 10/16/16 03:30 100 20 40 10/16/16 03:30 100 20 104/28 100 Mechanical Ventilator 100 10/16/16 03:15 101 20 104/60 100 Mechanical Ventilator 100 10/16/16 03:00 103 20 106/55 100 Mechanical Ventilator 100 10/16/16 02:45 103 20 92/46 100 Mechanical Ventilator 100 10/16/16 02:30 105 20 113/41 100 Mechanical Ventilator 100 10/16/16 02:15 106 20 103/50 100 Mechanical Ventilator 100 10/16/16 02:00 105 20 101/48 100 Mechanical Ventilator 100 10/16/16 02:00 115/52 10/16/16 01:45 106 20 101/48 100 Mechanical Ventilator 100 10/16/16 01:30 106 20 90/50 100 Mechanical Ventilator 100 10/16/16 01:15 106 20 90/50 100 Mechanical Ventilator 100 10/16/16 01:00 90/50 10/16/16 01:00 103 20 97/51 100 Mechanical Ventilator 100 10/16/16 00:59 100 20 50 10/16/16 00:45 102 20 103/42 100 Mechanical Ventilator 100 10/16/16 00:30 107 20 138/59 100 Mechanical Ventilator 100 10/16/16 00:15 102 20 94/50 100 Mechanical Ventilator 100 10/16/16 00:00 100 10/16/16 00:00 104 10/16/16 00:00 94/50 10/16/16 00:00 102 20 84/38 100 Mechanical Ventilator 100 10/15/16 23:45 97.0 102 20 82/36 100 Mechanical Ventilator 100 10/15/16 23:30 101 20 84/38 100 Mechanical Ventilator 100 10/15/16 23:15 102 20 75/40 100 Mechanical Ventilator 100 10/15/16 23:14 101 20 70 10/15/16 23:04 100 10/15/16 23:00 103 20 81/44 100 Mechanical Ventilator 100 10/15/16 22:45 100 16 76/61 100 Mechanical Ventilator 100 10/15/16 22:30 99 16 68/35 100 Mechanical Ventilator 100 10/15/16 22:21 61/25 10/15/16 22:00 103 16 61/25 100 Mechanical Ventilator 100 10/15/16 21:22 100 10/15/16 21:18 77 16 100 10/15/16 21:00 80 44 54/23 96 Bi-pap 70 10/15/16 20:29 92 37 100 Facial 60 10/15/16 20:00 94 44 83/37 96 Bi-pap 70 10/15/16 20:00 84 10/15/16 20:00 70 10/15/16 19:30 88 44 97 Facial 70 10/15/16 19:00 99.0 90 44 69/39 96 Bi-pap 70 10/15/16 18:09 100.0 10/15/16 18:00 100.0 106 32 99/49 98 Bi-pap 70 10/15/16 17:00 101.2 108 30 108/45 95 Bi-pap 70 10/15/16 16:45 113 57 96 Facial 70 10/15/16 16:00 100.0 112 36 120/46 94 Bi-pap 70 10/15/16 16:00 70 10/15/16 16:00 111 10/15/16 15:00 117 35 114/46 94 Bi-pap 70 10/15/16 15:00 70 10/15/16 14:41 111 47 97 Facial 70 10/15/16 14:00 119 31 136/46 98 Venturi Mask 55 10/15/16 13:00 121 32 128/51 98 Venturi Mask 55 10/15/16 12:00 98.4 117 30 127/52 88 Venturi Mask 55 10/15/16 12:00 116 10/15/16 11:00 113 32 154/50 98 Venturi Mask 55 Status: sedated HEENT: atraumatic Neck: full ROM Lungs: clear Heart: HR/BP stable, HR/BP unstable Abdomen: soft, non-tender, active bowel sounds Extremities: no C/C/E, edema Decubiti: location Micro: Microbiology Date/Time Source Procedure Growth Status 10/14/16 13:40 Blood Blood Culture - Preliminary NO GROWTH AFTER 24 HOURS Resulted 10/14/16 13:40 Blood Blood Culture - Preliminary NO GROWTH AFTER 24 HOURS Resulted 10/14/16 16:03 Nasal Nares MRSA Culture - Final NO METHICILLIN RESISTANT STAPH AUREUS... Complete 10/14/16 14:45 Urine,Clean Catch Urine Culture - Preliminary NO GROWTH AFTER 24 HOURS Resulted 10/14/16 16:03 Rectum VRE Culture - Final NO VANCOMYCIN RESISTANT ENTEROCOCCUS ... Complete Accucheck: 307 Critical Care - Subjective ROS Limited/Unobtainable: Yes ICU Day: 2 Intubation Day: 2 Interval Events: intubated last night, started on pressors because of hypotension FI02: 40 Vent Support Breath Rate: 20 Vent Support Mode: AC Vent Tidal Volume: 500 Sputum Amount: Moderate PEEP: 5.0 PIP: 40 I&O: Intake and Output 10/15/16 10/16/16 19:00 07:00 Intake Total 2810.0 ml 1223.100 ml Output Total 150 ml 345 ml Balance 2660.0 ml 878.100 ml Intake Oral 150 ml IV Total 2660.0 ml 1223.100 ml Output Urine Total 150 ml 345 ml # Voids 310 CXR: increasing RLL infiltrate ET-Tube: 8.0 ET Position: 24 Labs: Laboratory Tests Test 10/15/16 14:21 10/15/16 15:38 10/15/16 19:21 10/15/16 19:31 Arterial Blood pH 7.150 (7.350-7.450) 7.150 (7.350-7.450) 7.048 (7.350-7.450) Arterial Blood Partial Pressure CO2 62.0 mmHg (35.0-45.0) *H 54.0 mmHg (35.0-45.0) H 59.6 mmHg (35.0-45.0) *H Arterial Blood Partial Pressure O2 49.0 mmHg (75.0-100.0) 64.0 mmHg (75.0-100.0) L 74.2 mmHg (75.0-100.0) L Arterial Blood HCO3 20.9 mmol/L (22.0-26.0) L 18.2 mmol/L (22.0-26.0) L 16.0 mmol/L (22.0-26.0) L Arterial Blood Oxygen Saturation 80.0 % (92.0-98.0) L 89.0 % (92.0-98.0) L 90.8 % (92.0-98.0) L Arterial Blood Base Excess -8.3 -10.6 -14.3 Hi Test Positive Positive Positive Sodium Level 144 mEQ/L (135-145) Potassium Level 4.6 mEQ/L (3.4-4.9) Chloride Level 104 mEQ/L (98-107) Carbon Dioxide Level 14 mEQ/L (20-30) L Anion Gap 26 (5-15) H Blood Urea Nitrogen 51 mg/dL (7-23) H Creatinine 3.0 mg/dL (0.7-1.2) H Estimat Glomerular Filtration Rate 25.3 mL/min (>60) Glucose Level 197 mg/dL (74-106) H Calcium Level 7.0 mg/dL (8.6-10.2) L Pro-B-Type Natriuretic Peptide 6463 pg/mL (0-125) H Test 10/15/16 22:20 10/16/16 04:35 Arterial Blood pH 7.045 (7.350-7.450) Arterial Blood Partial Pressure CO2 47.1 mmHg (35.0-45.0) H Arterial Blood Partial Pressure O2 302.8 mmHg (75.0-100.0) H Arterial Blood HCO3 12.6 mmol/L (22.0-26.0) L Arterial Blood Oxygen Saturation 99.2 % (92.0-98.0) H Arterial Blood Base Excess -17.2 Hi Test Positive White Blood Count 15.2 K/UL (4.8-10.8) H Red Blood Count 3.13 M/UL (4.70-6.10) L Hemoglobin 9.4 G/DL (14.2-18.0) L Hematocrit 31.2 % (42.0-52.0) L Mean Corpuscular Volume 99 FL (80-99) Mean Corpuscular Hemoglobin 30.2 PG (27.0-31.0) Mean Corpuscular Hemoglobin Concent 30.3 G/DL (32.0-36.0) L Red Cell Distribution Width 12.9 % (11.6-14.8) Platelet Count 161 K/UL (150-450) Mean Platelet Volume 8.2 FL (6.5-10.1) Neutrophils (%) (Auto) 80.3 % (45.0-75.0) H Lymphocytes (%) (Auto) 12.3 % (20.0-45.0) L Monocytes (%) (Auto) 6.9 % (1.0-10.0) Eosinophils (%) (Auto) 0.0 % (0.0-3.0) Basophils (%) (Auto) 0.5 % (0.0-2.0) Prothrombin Time 14.7 SEC (9.30-11.50) H Prothromb Time International Ratio 1.4 (0.9-1.1) H Activated Partial Thromboplast Time 37 SEC (23-33) H Sodium Level 148 mEQ/L (135-145) H Potassium Level 4.3 mEQ/L (3.4-4.9) Chloride Level 105 mEQ/L (98-107) Carbon Dioxide Level 16 mEQ/L (20-30) L Anion Gap 27 (5-15) H Blood Urea Nitrogen 55 mg/dL (7-23) H Creatinine 3.5 mg/dL (0.7-1.2) H Estimat Glomerular Filtration Rate 21.2 mL/min (>60) Glucose Level 352 mg/dL (74-106) #H Lactic Acid Level 1.30 mmol/L (0.66-2.22) Calcium Level 7.1 mg/dL (8.6-10.2) L Phosphorus Level 4.7 mg/dL (2.5-4.8) Magnesium Level 1.4 mg/dL (1.7-2.5) L Total Bilirubin 0.5 mg/dL (0.0-1.2) Aspartate Amino Transf (AST/SGOT) 51 U/L (5-40) H Alanine Aminotransferase (ALT/SGPT) 24 U/L (3-41) Alkaline Phosphatase 77 U/L (40-129) Troponin I 0.95 ng/mL (<=0.30) *H Total Protein 5.6 g/dL (6.6-8.7) L Albumin 2.3 g/dL (3.5-5.2) L Globulin 3.3 g/dL Albumin/Globulin Ratio 0.6 (1.0-2.7) L BELTRAN OROSCO Oct 16, 2016 10:56
[2016-10-16 11:25] LABS: ABG BASE EXCESS -2.3; ABG PCO2 38.3 mmHg (35.0-45.0)
[2016-10-16 11:26] LABS: ABG ALLEN TEST POSITIVE
--- NOTE | 2016-10-16 11:55 | Internal Med Progress Note ---
Subjective Date of Service: Oct 16, 2016 Physician Name Ann Haq Attending Physician Bubba Osullivan MD Current Medications Medications (Trade) Dose Ordered Sig/Obie Route PRN Reason Start Time Stop Time Status Last Admin Dose Admin Acetaminophen (Tylenol) 650 mg Q4H PRN ORAL fever 10/14/16 17:30 11/13/16 17:29 10/15/16 17:10 Al Hydroxide/Mg Hydroxide (Mylanta II) 30 ml Q6H PRN ORAL dyspepsia 10/14/16 17:30 11/13/16 17:29 Albuterol/ Ipratropium (DuoNeb 0.5-3(2.5)mg/3ml) 3 ml Q4H PRN HHN Shortness of Breath 10/14/16 17:30 10/19/16 17:29 Clopidogrel Bisulfate (Plavix) 75 mg DAILY ORAL 10/15/16 09:00 11/14/16 08:59 10/16/16 08:39 Dextrose (Dextrose 50%) STAT PRN IV Hypoglycemia 10/14/16 17:30 11/13/16 17:29 Dopamine HCl/ Dextrose (DOPamine 400mg/ 250ml) 250 ml @ 0 mls/hr Q24H IV 10/15/16 22:00 11/14/16 21:59 10/15/16 22:21 Heparin Sodium (Porcine) (Heparin 5000 units/ml) 5,000 units EVERY 12 HOURS SUBQ 10/14/16 21:00 11/13/16 20:59 10/16/16 08:38 Insulin Aspart (NovoLOG) EVERY 6 HOURS SUBQ 10/16/16 12:00 11/15/16 11:59 Levofloxacin 150 ml @ 100 mls/hr Q48H IVPB 10/15/16 12:30 10/22/16 12:29 10/15/16 12:54 Nitroglycerin (Ntg) 0.4 mg Q5MIN X 3 DOSES PRN SL Prn Chest Pain 10/14/16 17:30 11/13/16 17:29 Ondansetron HCl (Zofran) 4 mg Q6H PRN IVP Nausea & Vomiting 10/14/16 17:30 11/13/16 17:29 Phenobarbital (PHENobarbital) 32.4 mg THREE TIMES A DAY ORAL 10/14/16 18:00 11/13/16 17:59 10/16/16 08:39 Phenytoin (Dilantin) 100 mg TID ORAL 10/14/16 18:00 11/13/16 17:59 10/16/16 08:38 Piperacillin Sod/ Tazobactam Sod 4.5 gm/Dextrose 110 ml @ 27.5 mls/hr EVERY 8 HOURS IVPB 10/15/16 14:00 10/20/16 13:59 10/16/16 05:48 Polyethylene Glycol (Miralax) 17 gm DAILYPRN PRN ORAL Constipation 10/14/16 17:30 11/13/16 17:29 Sodium Bicarbonate 150 ml/Dextrose 1,150 ml @ 100 mls/hr [id number] IV 10/15/16 21:00 11/14/16 20:59 10/16/16 08:38 Vancomycin HCl 1 ea 1 ea DAILY PRN MISC Per rx protocol 10/14/16 17:30 11/13/16 17:29 Vancomycin HCl 1 gm/Dextrose 275 ml @ 183.708 mls/hr Q24H IVPB 10/14/16 20:00 10/19/16 19:59 10/15/16 20:35 Allergies: Coded Allergies: No Known Allergies (Unverified , 10/14/16) ROS Limited/Unobtainable: Yes Subjective 70 YO M admitted with shortness of breath, now pneumonia. Cover for [facility]-Dr Osullivan. ICU. Intubated and sedated. Objective Last Vital Signs Date Time Temp Pulse Resp B/P Pulse Ox O2 Delivery O2 Flow Rate FiO2 10/16/16 11:25 89 20 40 10/16/16 09:00 114/56 100 Mechanical Ventilator 10/16/16 08:00 99.9 10/14/16 14:45 15.0 General Appearance: WD/WN, moderate distress EENT: normal ENT inspection Neck: non-tender, normal alignment, supple Cardiovascular: normal peripheral pulses, normal rate, regular rhythm, no gallop/murmur, no JVD Respiratory/Chest: respiratory distress, crackles/rales, rhonchi - bilaterally , expiratory wheezing Abdomen: normal bowel sounds, non tender, soft, no organomegaly, no mass Skin: normal pigmentation, warm/dry Laboratory Tests Test 10/15/16 14:21 10/15/16 15:38 10/15/16 19:21 10/15/16 19:31 Arterial Blood pH 7.150 (7.350-7.450) 7.150 (7.350-7.450) 7.048 (7.350-7.450) Arterial Blood Partial Pressure CO2 62.0 mmHg (35.0-45.0) *H 54.0 mmHg (35.0-45.0) H 59.6 mmHg (35.0-45.0) *H Arterial Blood Partial Pressure O2 49.0 mmHg (75.0-100.0) 64.0 mmHg (75.0-100.0) L 74.2 mmHg (75.0-100.0) L Arterial Blood HCO3 20.9 mmol/L (22.0-26.0) L 18.2 mmol/L (22.0-26.0) L 16.0 mmol/L (22.0-26.0) L Arterial Blood Oxygen Saturation 80.0 % (92.0-98.0) L 89.0 % (92.0-98.0) L 90.8 % (92.0-98.0) L Arterial Blood Base Excess -8.3 -10.6 -14.3 Hi Test Positive Positive Positive Sodium Level 144 mEQ/L (135-145) Potassium Level 4.6 mEQ/L (3.4-4.9) Chloride Level 104 mEQ/L (98-107) Carbon Dioxide Level 14 mEQ/L (20-30) L Anion Gap 26 (5-15) H Blood Urea Nitrogen 51 mg/dL (7-23) H Creatinine 3.0 mg/dL (0.7-1.2) H Estimat Glomerular Filtration Rate 25.3 mL/min (>60) Glucose Level 197 mg/dL (74-106) H Calcium Level 7.0 mg/dL (8.6-10.2) L Pro-B-Type Natriuretic Peptide 6463 pg/mL (0-125) H Test 10/15/16 22:20 10/16/16 04:35 10/16/16 11:15 Arterial Blood pH 7.045 (7.350-7.450) 7.385 (7.350-7.450) Arterial Blood Partial Pressure CO2 47.1 mmHg (35.0-45.0) H 38.3 mmHg (35.0-45.0) Arterial Blood Partial Pressure O2 302.8 mmHg (75.0-100.0) H 86.7 mmHg (75.0-100.0) Arterial Blood HCO3 12.6 mmol/L (22.0-26.0) L 22.4 mmol/L (22.0-26.0) Arterial Blood Oxygen Saturation 99.2 % (92.0-98.0) H 95.8 % (92.0-98.0) Arterial Blood Base Excess -17.2 -2.3 Hi Test Positive Positive White Blood Count 15.2 K/UL (4.8-10.8) H Red Blood Count 3.13 M/UL (4.70-6.10) L Hemoglobin 9.4 G/DL (14.2-18.0) L Hematocrit 31.2 % (42.0-52.0) L Mean Corpuscular Volume 99 FL (80-99) Mean Corpuscular Hemoglobin 30.2 PG (27.0-31.0) Mean Corpuscular Hemoglobin Concent 30.3 G/DL (32.0-36.0) L Red Cell Distribution Width 12.9 % (11.6-14.8) Platelet Count 161 K/UL (150-450) Mean Platelet Volume 8.2 FL (6.5-10.1) Neutrophils (%) (Auto) 80.3 % (45.0-75.0) H Lymphocytes (%) (Auto) 12.3 % (20.0-45.0) L Monocytes (%) (Auto) 6.9 % (1.0-10.0) Eosinophils (%) (Auto) 0.0 % (0.0-3.0) Basophils (%) (Auto) 0.5 % (0.0-2.0) Prothrombin Time 14.7 SEC (9.30-11.50) H Prothromb Time International Ratio 1.4 (0.9-1.1) H Activated Partial Thromboplast Time 37 SEC (23-33) H Sodium Level 148 mEQ/L (135-145) H Potassium Level 4.3 mEQ/L (3.4-4.9) Chloride Level 105 mEQ/L (98-107) Carbon Dioxide Level 16 mEQ/L (20-30) L Anion Gap 27 (5-15) H Blood Urea Nitrogen 55 mg/dL (7-23) H Creatinine 3.5 mg/dL (0.7-1.2) H Estimat Glomerular Filtration Rate 21.2 mL/min (>60) Glucose Level 352 mg/dL (74-106) #H Lactic Acid Level 1.30 mmol/L (0.66-2.22) Calcium Level 7.1 mg/dL (8.6-10.2) L Phosphorus Level 4.7 mg/dL (2.5-4.8) Magnesium Level 1.4 mg/dL (1.7-2.5) L Total Bilirubin 0.5 mg/dL (0.0-1.2) Aspartate Amino Transf (AST/SGOT) 51 U/L (5-40) H Alanine Aminotransferase (ALT/SGPT) 24 U/L (3-41) Alkaline Phosphatase 77 U/L (40-129) Troponin I 0.95 ng/mL (<=0.30) *H Total Protein 5.6 g/dL (6.6-8.7) L Albumin 2.3 g/dL (3.5-5.2) L Globulin 3.3 g/dL Albumin/Globulin Ratio 0.6 (1.0-2.7) L Microbiology Date/Time Source Procedure Growth Status 10/14/16 13:40 Blood Blood Culture - Preliminary NO GROWTH AFTER 24 HOURS Resulted 10/14/16 13:40 Blood Blood Culture - Preliminary NO GROWTH AFTER 24 HOURS Resulted 10/14/16 16:03 Nasal Nares MRSA Culture - Final NO METHICILLIN RESISTANT STAPH AUREUS... Complete 10/14/16 14:45 Urine,Clean Catch Urine Culture - Preliminary NO GROWTH AFTER 24 HOURS Resulted 10/14/16 16:03 Rectum VRE Culture - Final NO VANCOMYCIN RESISTANT ENTEROCOCCUS ... Complete Intake and Output 10/15/16 10/16/16 19:00 07:00 Intake Total 2810.0 ml 1223.100 ml Output Total 150 ml 345 ml Balance 2660.0 ml 878.100 ml Intake Oral 150 ml IV Total 2660.0 ml 1223.100 ml Output Urine Total 150 ml 345 ml # Voids 310 Assessment/Plan Problem List: (1) CHF (congestive heart failure) (2) Elevated troponin Assessment & Plan: Await cardiology consult-Dr Feliciano. (3) Renal failure Assessment & Plan: Await nephrology consult-Dr Welch (4) Diabetes mellitus (5) HTN (hypertension) Assessment & Plan: Hypotensive on pressors. (6) Cerebral vascular disease (7) Respiratory failure, acute Assessment & Plan: See pulmonary note. (8) Pneumonia Assessment & Plan: Bilateral lower lobe. Continue levaquin, vanco and zosyn per ID Status: not improved ANN HAQ Oct 16, 2016 11:55
--- NOTE | 2016-10-16 12:47 | Consultation ---
Consult Note Assessment/Plan Renal consult dictated # [id number] SCOUT LANG[place]ON Oct 16, 2016 12:47
--- NOTE | 2016-10-16 13:31 | Diagnostic Imaging Report ---
Indication: Intubation Comparison: Earlier the same day A single view chest radiograph was obtained. Findings: Endotracheal tube is 2 cm above the [place] in good position. Cardiomegaly is again demonstrated. There is a right pleural effusion which is less apparent on the current exam. There is a focus of airspace disease asymmetrically involving the right perihilar and basilar aspect of the lung suspicious for pneumonia. Superimposed interstitial edema may be present as well. Impression: Endotracheal tube in good position Suspected right basilar pneumonia. Please correlate clinically. Suspected mild CHF
--- NOTE | 2016-10-16 14:59 | Cardiology Report ---
APPROVED REPORT EXAM: Two-dimensional and M-mode echocardiogram with Doppler and color Doppler. INDICATION Altered Loc M-Mode DIMENSIONS IVSd0.8 (0.7-1.1cm)Left Atrium (MM)2.8 (1.6-4.0cm) LVDd4.7 (3.5-5.6cm)Aortic Root2.6 (2.0-3.7cm) PWd0.9 (0.7-1.1cm)Aortic Cusp Exc.1.7 (1.5-2.0cm) LVDs3.4 (2.5-4.0cm) PWs0.9 cm Normal left ventricular chamber size, systolic function and wall motion. Left ventricular ejection fraction estimated to be 55-60 %. No evidence of left ventricular hypertrophy. No evidence of pericardial fat or effusion. Mild bi-atrial and right ventricular enlargement by 2D. Focal aortic valve sclerosis with adequate cusp excursion Thickened mitral valve leaflets with normal excursion. Mitral annulus and aortic root calcification. Pulmonic valve is well visualized. Normal tricuspid valve structure. IVC dilated at 2.3cm with no physiologic collapse. RA pressure of 20mmHg. Mobile IAS seen moving from left to right. A color flow and spectral Doppler study was performed and revealed: No aortic regurgitation. No mitral regurgitation. Left ventricular diastolic dysfunction grade 1. Moderate tricuspid regurgitation. Tricuspid systolic velocities suggests peak right ventricular systolic pressure of 48 mmHg Consistent with moderate pulmonary hypertension.
--- NOTE | 2016-10-16 16:07 | Cardiology Report ---
APPROVED REPORT EKG Measurement Heart [id number] Sinus tachycardia with fusion complexes Biatrial enlargement Septal infarct, age undetermined Abnormal ECG
--- NOTE | 2016-10-16 17:15 | Cardiac Electrophysiology PN ---
Subjective Subjective [id number] Objective Last 24 Hour Vital Signs Date Time Temp Pulse Resp B/P Pulse Ox O2 Delivery O2 Flow Rate FiO2 10/16/16 17:04 86 20 40 10/16/16 15:07 93 20 40 10/16/16 14:18 100.0 10/16/16 13:08 92 20 40 10/16/16 12:00 98.4 89 20 118/50 100 Mechanical Ventilator 40 10/16/16 12:00 40 10/16/16 12:00 88 10/16/16 11:25 89 20 40 10/16/16 11:00 89 20 135/54 100 Mechanical Ventilator 40 10/16/16 10:00 90 20 130/54 90 Mechanical Ventilator 40 10/16/16 09:36 86 20 40 10/16/16 09:00 88 20 114/56 100 Mechanical Ventilator 40 10/16/16 08:39 90/48 10/16/16 08:00 87 10/16/16 08:00 99.9 84 16 92/47 100 Mechanical Ventilator 40 10/16/16 08:00 40 10/16/16 07:29 86 23 40 10/16/16 07:00 86 20 109/52 100 Mechanical Ventilator 100 10/16/16 06:00 87 20 94/48 100 Mechanical Ventilator 100 10/16/16 05:15 98 20 109/49 100 Mechanical Ventilator 100 10/16/16 05:06 99 20 40 10/16/16 05:00 98 20 100/51 100 Mechanical Ventilator 100 10/16/16 04:45 98 20 100/51 100 Mechanical Ventilator 100 10/16/16 04:30 99 20 99/53 100 Mechanical Ventilator 100 10/16/16 04:15 99 20 104/47 100 Mechanical Ventilator 100 10/16/16 04:00 97.8 99 20 94/50 100 Mechanical Ventilator 100 10/16/16 04:00 99 10/16/16 04:00 100 10/16/16 03:45 100 20 96/50 100 Mechanical Ventilator 100 10/16/16 03:30 100 20 40 10/16/16 03:30 100 20 104/28 100 Mechanical Ventilator 100 10/16/16 03:15 101 20 104/60 100 Mechanical Ventilator 100 10/16/16 03:00 103 20 106/55 100 Mechanical Ventilator 100 10/16/16 02:45 103 20 92/46 100 Mechanical Ventilator 100 10/16/16 02:30 105 20 113/41 100 Mechanical Ventilator 100 10/16/16 02:15 106 20 103/50 100 Mechanical Ventilator 100 10/16/16 02:00 105 20 101/48 100 Mechanical Ventilator 100 10/16/16 02:00 115/52 10/16/16 01:45 106 20 101/48 100 Mechanical Ventilator 100 10/16/16 01:30 106 20 90/50 100 Mechanical Ventilator 100 10/16/16 01:15 106 20 90/50 100 Mechanical Ventilator 100 10/16/16 01:00 90/50 10/16/16 01:00 103 20 97/51 100 Mechanical Ventilator 100 10/16/16 00:59 100 20 50 10/16/16 00:45 102 20 103/42 100 Mechanical Ventilator 100 10/16/16 00:30 107 20 138/59 100 Mechanical Ventilator 100 10/16/16 00:15 102 20 94/50 100 Mechanical Ventilator 100 10/16/16 00:00 100 10/16/16 00:00 104 10/16/16 00:00 94/50 10/16/16 00:00 102 20 84/38 100 Mechanical Ventilator 100 10/15/16 23:45 97.0 102 20 82/36 100 Mechanical Ventilator 100 10/15/16 23:30 101 20 84/38 100 Mechanical Ventilator 100 10/15/16 23:15 102 20 75/40 100 Mechanical Ventilator 100 10/15/16 23:14 101 20 70 10/15/16 23:04 100 10/15/16 23:00 103 20 81/44 100 Mechanical Ventilator 100 10/15/16 22:45 100 16 76/61 100 Mechanical Ventilator 100 10/15/16 22:30 99 16 68/35 100 Mechanical Ventilator 100 10/15/16 22:21 61/25 10/15/16 22:00 103 16 61/25 100 Mechanical Ventilator 100 10/15/16 21:22 100 10/15/16 21:18 77 16 100 10/15/16 21:00 80 44 54/23 96 Bi-pap 70 10/15/16 20:29 92 37 100 Facial 60 10/15/16 20:00 94 44 83/37 96 Bi-pap 70 10/15/16 20:00 84 10/15/16 20:00 70 10/15/16 19:30 88 44 97 Facial 70 10/15/16 19:00 99.0 90 44 69/39 96 Bi-pap 70 10/15/16 18:00 100.0 106 32 99/49 98 Bi-pap 70 Intake and Output 10/15/16 10/16/16 19:00 07:00 Intake Total 2810.0 ml 1223.100 ml Output Total 150 ml 345 ml Balance 2660.0 ml 878.100 ml Intake Oral 150 ml IV Total 2660.0 ml 1223.100 ml Output Urine Total 150 ml 345 ml # Voids 310 Laboratory Tests Test 10/15/16 19:21 10/15/16 19:31 10/15/16 22:20 10/16/16 04:35 Arterial Blood pH 7.048 (7.350-7.450) 7.045 (7.350-7.450) Arterial Blood Partial Pressure CO2 59.6 mmHg (35.0-45.0) *H 47.1 mmHg (35.0-45.0) H Arterial Blood Partial Pressure O2 74.2 mmHg (75.0-100.0) L 302.8 mmHg (75.0-100.0) H Arterial Blood HCO3 16.0 mmol/L (22.0-26.0) L 12.6 mmol/L (22.0-26.0) L Arterial Blood Oxygen Saturation 90.8 % (92.0-98.0) L 99.2 % (92.0-98.0) H Arterial Blood Base Excess -14.3 -17.2 Hi Test Positive Positive Sodium Level 144 mEQ/L (135-145) 148 mEQ/L (135-145) H Potassium Level 4.6 mEQ/L (3.4-4.9) 4.3 mEQ/L (3.4-4.9) Chloride Level 104 mEQ/L (98-107) 105 mEQ/L (98-107) Carbon Dioxide Level 14 mEQ/L (20-30) L 16 mEQ/L (20-30) L Anion Gap 26 (5-15) H 27 (5-15) H Blood Urea Nitrogen 51 mg/dL (7-23) H 55 mg/dL (7-23) H Creatinine 3.0 mg/dL (0.7-1.2) H 3.5 mg/dL (0.7-1.2) H Estimat Glomerular Filtration Rate 25.3 mL/min (>60) 21.2 mL/min (>60) Glucose Level 197 mg/dL (74-106) H 352 mg/dL (74-106) #H Calcium Level 7.0 mg/dL (8.6-10.2) L 7.1 mg/dL (8.6-10.2) L Pro-B-Type Natriuretic Peptide 6463 pg/mL (0-125) H White Blood Count 15.2 K/UL (4.8-10.8) H Red Blood Count 3.13 M/UL (4.70-6.10) L Hemoglobin 9.4 G/DL (14.2-18.0) L Hematocrit 31.2 % (42.0-52.0) L Mean Corpuscular Volume 99 FL (80-99) Mean Corpuscular Hemoglobin 30.2 PG (27.0-31.0) Mean Corpuscular Hemoglobin Concent 30.3 G/DL (32.0-36.0) L Red Cell Distribution Width 12.9 % (11.6-14.8) Platelet Count 161 K/UL (150-450) Mean Platelet Volume 8.2 FL (6.5-10.1) Neutrophils (%) (Auto) 80.3 % (45.0-75.0) H Lymphocytes (%) (Auto) 12.3 % (20.0-45.0) L Monocytes (%) (Auto) 6.9 % (1.0-10.0) Eosinophils (%) (Auto) 0.0 % (0.0-3.0) Basophils (%) (Auto) 0.5 % (0.0-2.0) Prothrombin Time 14.7 SEC (9.30-11.50) H Prothromb Time International Ratio 1.4 (0.9-1.1) H Activated Partial Thromboplast Time 37 SEC (23-33) H Lactic Acid Level 1.30 mmol/L (0.66-2.22) Phosphorus Level 4.7 mg/dL (2.5-4.8) Magnesium Level 1.4 mg/dL (1.7-2.5) L Total Bilirubin 0.5 mg/dL (0.0-1.2) Aspartate Amino Transf (AST/SGOT) 51 U/L (5-40) H Alanine Aminotransferase (ALT/SGPT) 24 U/L (3-41) Alkaline Phosphatase 77 U/L (40-129) Troponin I 0.95 ng/mL (<=0.30) *H Total Protein 5.6 g/dL (6.6-8.7) L Albumin 2.3 g/dL (3.5-5.2) L Globulin 3.3 g/dL Albumin/Globulin Ratio 0.6 (1.0-2.7) L Test 10/16/16 11:15 10/16/16 13:00 Arterial Blood pH 7.385 (7.350-7.450) Arterial Blood Partial Pressure CO2 38.3 mmHg (35.0-45.0) Arterial Blood Partial Pressure O2 86.7 mmHg (75.0-100.0) Arterial Blood HCO3 22.4 mmol/L (22.0-26.0) Arterial Blood Oxygen Saturation 95.8 % (92.0-98.0) Arterial Blood Base Excess -2.3 Hi Test Positive Urine Eosinophils None seen Microbiology Date/Time Source Procedure Growth Status 10/14/16 13:40 Blood Blood Culture - Preliminary NO GROWTH AFTER 24 HOURS Resulted 10/14/16 13:40 Blood Blood Culture - Preliminary NO GROWTH AFTER 24 HOURS Resulted 10/14/16 16:03 Nasal Nares MRSA Culture - Final NO METHICILLIN RESISTANT STAPH AUREUS... Complete 10/14/16 14:45 Urine,Clean Catch Urine Culture - Preliminary NO GROWTH AFTER 24 HOURS Resulted 10/14/16 16:03 Rectum VRE Culture - Final NO VANCOMYCIN RESISTANT ENTEROCOCCUS ... Complete PEDRO ADLER Oct 16, 2016 17:15
[2016-10-16] MEDS ORDERED: NS 275ml ONE (17:41)
[2016-10-16] MEDS ORDERED: Tubing IV Secondary IV ONE (17:41)
--- NOTE | 2016-10-16 18:22 | Infectious Diseases Prog Note ---
Assessment/Plan Assessment/Plan A: The patient is a 70-year-old male with Fever leukocytosis Sepsis pneumonia possible aspiration. CVA Hypertension. History of diabetes. BiPAP at home. PLAN: continue the patient on vancomycin , Levquin and Zosyn d# 2 Monitor CBC , BMP Monitor cultures (blood, urine, and sputum) vebt support Subjective Constitutional: Reports: fever, Denies: anorexia, chills, drenching sweats, fatigue, no symptoms, other Allergies: Coded Allergies: No Known Allergies (Unverified , 10/14/16) Objective Vital Signs Last 24 Hour Vital Signs Date Time Temp Pulse Resp B/P Pulse Ox O2 Delivery O2 Flow Rate FiO2 10/16/16 17:04 86 20 40 10/16/16 15:07 93 20 40 10/16/16 14:18 100.0 10/16/16 13:08 92 20 40 10/16/16 12:00 98.4 89 20 118/50 100 Mechanical Ventilator 40 10/16/16 12:00 40 10/16/16 12:00 88 10/16/16 11:25 89 20 40 10/16/16 11:00 89 20 135/54 100 Mechanical Ventilator 40 10/16/16 10:00 90 20 130/54 90 Mechanical Ventilator 40 10/16/16 09:36 86 20 40 10/16/16 09:00 88 20 114/56 100 Mechanical Ventilator 40 10/16/16 08:39 90/48 10/16/16 08:00 87 10/16/16 08:00 99.9 84 16 92/47 100 Mechanical Ventilator 40 10/16/16 08:00 40 10/16/16 07:29 86 23 40 10/16/16 07:00 86 20 109/52 100 Mechanical Ventilator 100 10/16/16 06:00 87 20 94/48 100 Mechanical Ventilator 100 10/16/16 05:15 98 20 109/49 100 Mechanical Ventilator 100 10/16/16 05:06 99 20 40 10/16/16 05:00 98 20 100/51 100 Mechanical Ventilator 100 10/16/16 04:45 98 20 100/51 100 Mechanical Ventilator 100 10/16/16 04:30 99 20 99/53 100 Mechanical Ventilator 100 10/16/16 04:15 99 20 104/47 100 Mechanical Ventilator 100 10/16/16 04:00 97.8 99 20 94/50 100 Mechanical Ventilator 100 10/16/16 04:00 99 10/16/16 04:00 100 10/16/16 03:45 100 20 96/50 100 Mechanical Ventilator 100 10/16/16 03:30 100 20 40 10/16/16 03:30 100 20 104/28 100 Mechanical Ventilator 100 10/16/16 03:15 101 20 104/60 100 Mechanical Ventilator 100 10/16/16 03:00 103 20 106/55 100 Mechanical Ventilator 100 10/16/16 02:45 103 20 92/46 100 Mechanical Ventilator 100 10/16/16 02:30 105 20 113/41 100 Mechanical Ventilator 100 10/16/16 02:15 106 20 103/50 100 Mechanical Ventilator 100 10/16/16 02:00 105 20 101/48 100 Mechanical Ventilator 100 10/16/16 02:00 115/52 10/16/16 01:45 106 20 101/48 100 Mechanical Ventilator 100 10/16/16 01:30 106 20 90/50 100 Mechanical Ventilator 100 10/16/16 01:15 106 20 90/50 100 Mechanical Ventilator 100 10/16/16 01:00 90/50 10/16/16 01:00 103 20 97/51 100 Mechanical Ventilator 100 10/16/16 00:59 100 20 50 10/16/16 00:45 102 20 103/42 100 Mechanical Ventilator 100 10/16/16 00:30 107 20 138/59 100 Mechanical Ventilator 100 10/16/16 00:15 102 20 94/50 100 Mechanical Ventilator 100 10/16/16 00:00 100 10/16/16 00:00 104 10/16/16 00:00 94/50 10/16/16 00:00 102 20 84/38 100 Mechanical Ventilator 100 10/15/16 23:45 97.0 102 20 82/36 100 Mechanical Ventilator 100 10/15/16 23:30 101 20 84/38 100 Mechanical Ventilator 100 10/15/16 23:15 102 20 75/40 100 Mechanical Ventilator 100 10/15/16 23:14 101 20 70 10/15/16 23:04 100 10/15/16 23:00 103 20 81/44 100 Mechanical Ventilator 100 10/15/16 22:45 100 16 76/61 100 Mechanical Ventilator 100 10/15/16 22:30 99 16 68/35 100 Mechanical Ventilator 100 10/15/16 22:21 61/25 10/15/16 22:00 103 16 61/25 100 Mechanical Ventilator 100 10/15/16 21:22 100 10/15/16 21:18 77 16 100 10/15/16 21:00 80 44 54/23 96 Bi-pap 70 10/15/16 20:29 92 37 100 Facial 60 10/15/16 20:00 94 44 83/37 96 Bi-pap 70 10/15/16 20:00 84 10/15/16 20:00 70 10/15/16 19:30 88 44 97 Facial 70 10/15/16 19:00 99.0 90 44 69/39 96 Bi-pap 70 Height (Feet): 5 Height (Inches): 6.00 Weight (Pounds): 140 HEENT: normocephalic Respiratory/Chest: lungs clear Cardiovascular: regular rhythm Abdomen: no organomegaly Microbiology Date/Time Source Procedure Growth Status 10/14/16 13:40 Blood Blood Culture - Preliminary NO GROWTH AFTER 24 HOURS Resulted 10/14/16 13:40 Blood Blood Culture - Preliminary NO GROWTH AFTER 24 HOURS Resulted 10/14/16 16:03 Nasal Nares MRSA Culture - Final NO METHICILLIN RESISTANT STAPH AUREUS... Complete 10/14/16 14:45 Urine,Clean Catch Urine Culture - Preliminary NO GROWTH AFTER 24 HOURS Resulted 10/14/16 16:03 Rectum VRE Culture - Final NO VANCOMYCIN RESISTANT ENTEROCOCCUS ... Complete Laboratory Tests Test 10/15/16 19:21 10/15/16 19:31 10/15/16 22:20 10/16/16 04:35 Arterial Blood pH 7.048 (7.350-7.450) 7.045 (7.350-7.450) Arterial Blood Partial Pressure CO2 59.6 mmHg (35.0-45.0) *H 47.1 mmHg (35.0-45.0) H Arterial Blood Partial Pressure O2 74.2 mmHg (75.0-100.0) L 302.8 mmHg (75.0-100.0) H Arterial Blood HCO3 16.0 mmol/L (22.0-26.0) L 12.6 mmol/L (22.0-26.0) L Arterial Blood Oxygen Saturation 90.8 % (92.0-98.0) L 99.2 % (92.0-98.0) H Arterial Blood Base Excess -14.3 -17.2 Hi Test Positive Positive Sodium Level 144 mEQ/L (135-145) 148 mEQ/L (135-145) H Potassium Level 4.6 mEQ/L (3.4-4.9) 4.3 mEQ/L (3.4-4.9) Chloride Level 104 mEQ/L (98-107) 105 mEQ/L (98-107) Carbon Dioxide Level 14 mEQ/L (20-30) L 16 mEQ/L (20-30) L Anion Gap 26 (5-15) H 27 (5-15) H Blood Urea Nitrogen 51 mg/dL (7-23) H 55 mg/dL (7-23) H Creatinine 3.0 mg/dL (0.7-1.2) H 3.5 mg/dL (0.7-1.2) H Estimat Glomerular Filtration Rate 25.3 mL/min (>60) 21.2 mL/min (>60) Glucose Level 197 mg/dL (74-106) H 352 mg/dL (74-106) #H Calcium Level 7.0 mg/dL (8.6-10.2) L 7.1 mg/dL (8.6-10.2) L Pro-B-Type Natriuretic Peptide 6463 pg/mL (0-125) H White Blood Count 15.2 K/UL (4.8-10.8) H Red Blood Count 3.13 M/UL (4.70-6.10) L Hemoglobin 9.4 G/DL (14.2-18.0) L Hematocrit 31.2 % (42.0-52.0) L Mean Corpuscular Volume 99 FL (80-99) Mean Corpuscular Hemoglobin 30.2 PG (27.0-31.0) Mean Corpuscular Hemoglobin Concent 30.3 G/DL (32.0-36.0) L Red Cell Distribution Width 12.9 % (11.6-14.8) Platelet Count 161 K/UL (150-450) Mean Platelet Volume 8.2 FL (6.5-10.1) Neutrophils (%) (Auto) 80.3 % (45.0-75.0) H Lymphocytes (%) (Auto) 12.3 % (20.0-45.0) L Monocytes (%) (Auto) 6.9 % (1.0-10.0) Eosinophils (%) (Auto) 0.0 % (0.0-3.0) Basophils (%) (Auto) 0.5 % (0.0-2.0) Prothrombin Time 14.7 SEC (9.30-11.50) H Prothromb Time International Ratio 1.4 (0.9-1.1) H Activated Partial Thromboplast Time 37 SEC (23-33) H Lactic Acid Level 1.30 mmol/L (0.66-2.22) Phosphorus Level 4.7 mg/dL (2.5-4.8) Magnesium Level 1.4 mg/dL (1.7-2.5) L Total Bilirubin 0.5 mg/dL (0.0-1.2) Aspartate Amino Transf (AST/SGOT) 51 U/L (5-40) H Alanine Aminotransferase (ALT/SGPT) 24 U/L (3-41) Alkaline Phosphatase 77 U/L (40-129) Troponin I 0.95 ng/mL (<=0.30) *H Total Protein 5.6 g/dL (6.6-8.7) L Albumin 2.3 g/dL (3.5-5.2) L Globulin 3.3 g/dL Albumin/Globulin Ratio 0.6 (1.0-2.7) L Test 10/16/16 11:15 10/16/16 13:00 Arterial Blood pH 7.385 (7.350-7.450) Arterial Blood Partial Pressure CO2 38.3 mmHg (35.0-45.0) Arterial Blood Partial Pressure O2 86.7 mmHg (75.0-100.0) Arterial Blood HCO3 22.4 mmol/L (22.0-26.0) Arterial Blood Oxygen Saturation 95.8 % (92.0-98.0) Arterial Blood Base Excess -2.3 Hi Test Positive Urine Eosinophils None seen Current Medications Medications (Trade) Dose Ordered Sig/Obie Route PRN Reason Start Time Stop Time Status Last Admin Dose Admin Acetaminophen (Tylenol) 650 mg Q4H PRN ORAL fever 10/14/16 17:30 11/13/16 17:29 10/16/16 13:19 Al Hydroxide/Mg Hydroxide (Mylanta II) 30 ml Q6H PRN ORAL dyspepsia 10/14/16 17:30 11/13/16 17:29 Albuterol/ Ipratropium (DuoNeb 0.5-3(2.5)mg/3ml) 3 ml Q4H PRN HHN Shortness of Breath 10/14/16 17:30 10/19/16 17:29 Clopidogrel Bisulfate (Plavix) 75 mg DAILY ORAL 10/15/16 09:00 11/14/16 08:59 10/16/16 08:39 Dextrose (Dextrose 50%) STAT PRN IV Hypoglycemia 10/14/16 17:30 11/13/16 17:29 Heparin Sodium (Porcine) (Heparin 5000 units/ml) 5,000 units EVERY 12 HOURS SUBQ 10/14/16 21:00 11/13/16 20:59 10/16/16 08:38 Insulin Aspart EVERY 6 HOURS SUBQ 10/16/16 12:00 11/15/16 11:59 10/16/16 11:58 Levofloxacin 100 ml @ 100 mls/hr Q48H IVPB 10/17/16 12:00 10/24/16 11:59 Nitroglycerin (Ntg) 0.4 mg Q5MIN X 3 DOSES PRN SL Prn Chest Pain 10/14/16 17:30 11/13/16 17:29 Ondansetron HCl (Zofran) 4 mg Q6H PRN IVP Nausea & Vomiting 10/14/16 17:30 11/13/16 17:29 Phenobarbital (PHENobarbital) 32.4 mg THREE TIMES A DAY ORAL 10/14/16 18:00 11/13/16 17:59 10/16/16 13:19 Phenytoin (Dilantin) 100 mg TID ORAL 10/14/16 18:00 11/13/16 17:59 10/16/16 13:18 Piperacillin Sod/ Tazobactam Sod/ Dextrose (Zosyn/D5W) 110 ml @ 27.5 mls/hr EVERY 8 HOURS IVPB 10/16/16 22:00 10/23/16 21:59 Polyethylene Glycol (Miralax) 17 gm DAILYPRN PRN ORAL Constipation 10/14/16 17:30 11/13/16 17:29 Sodium Bicarbonate/ Dextrose (Sodium Bicarbonate/D5W 1000ml) 1,150 ml @ 100 mls/hr [id number] IV 10/15/16 21:00 11/14/16 20:59 10/16/16 08:38 Vancomycin HCl 1 ea 1 ea DAILY PRN MISC Per rx protocol 10/14/16 17:30 11/13/16 17:29 Vancomycin HCl 1 gm/Dextrose 275 ml @ 183.708 mls/hr Q24H IVPB 10/14/16 20:00 10/19/16 19:59 10/15/16 20:35 SOM PEREZ M.D. Oct 16, 2016 18:22
[2016-10-16] MEDS: Vancomycin 1gm in D5W 275ml IVPB SCH (20:22)
--- NOTE | 2016-10-16 20:28 | Consultation ---
DATE OF CONSULTATION: NEPHROLOGY CONSULTATION REFERRING PHYSICIAN: Bubba Osullivan M.D. REASON FOR CONSULTATION: Acute renal failure. HISTORY OF PRESENT ILLNESS: This is a 70-year-old male, who was admitted with shortness of breath and respiratory distress. The patient was eventually intubated and currently is in the intensive care unit. He has developed acute renal failure. His BUN and creatinine 55 and 3.5 as of today. On admission on 10/14/2016, BUN was 33 creatinine 1.3. The patient is unable to provide any history. PAST MEDICAL HISTORY: Includes history of diabetes mellitus, H/O CVA. MEDICATIONS: Reviewed in the EMR. ALLERGIES: No known drug allergies. SOCIAL HISTORY: No history of smoking or alcohol abuse. REVIEW OF SYSTEMS: Unobtainable. PHYSICAL EXAMINATION: GENERAL: The patient is a 70-year-old male, he is orally intubated. VITAL SIGNS: Blood pressure is 119/50, pulse 89, temperature 98.4, respiratory rate 20. HEENT: Pale conjunctivae. Anicteric sclerae. NECK: Supple. LUNGS: Coarse breath sounds bilaterally. HEART: S1 and S2 without murmurs or rubs. ABDOMEN: Soft and nontender. EXTREMITIES: Bilateral pedal edema. LABORATORY FINDINGS: Chemistry panel shows serum sodium 148, potassium 4.3, chloride 107, CO2 16, BUN 55, creatinine 3.5, blood sugar 352, calcium 7.9. CBC shows WBC of 15.2, hematocrit 31.2, hemoglobin 9.4, and platelets 161,000. UA shows 3+ protein, 10 to 15 RBCs, 5 to 10 WBCs per high-power field. A pH of 7.38, pCO2 38, pO2 87. Patient's intake was 4333, and output 490 mL in the last 24 hours. ASSESSMENT: This is a 70-year-old male who was admitted with shortness of breath, he is intubated now. He has developed acute renal failure, since his blood pressure has been relatively low he could have acute tubular necrosis which is the likely diagnosis, other possibilities are acute interstitial nephritis, obstruction unlikely. The patient has some proteinuria although also some red cells and white cells but the question is that he if he has some underlying chronic kidney disease as well. PLAN: I would keep the blood pressure in the 90 systolic if needed with the pressors, the patient supposed to get kidney ultrasound to rule out obstruction and urine eosinophils will be sent to rule out acute interstitial nephritis. Case was discussed with the patient's RN. Thank you very much, Dr. Osullivan, for this consultation. Alfonso Stern M.D. DR: Matthew JOB#: [id number] CC: [place]
[2016-10-16] MEDS: Piperacillin/Tazobactam 3.375 GM in D5W 110 ML IVPB SCH (22:11)
[2016-10-17] VITALS (24 sets, daily range): BP systolic 87–157; BP diastolic 51–112
[2016-10-17] MEDS: NovoLOG Insulin Flexpen SUBQ SCH ×4 (00:44→18:23)
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
--- NOTE | 2016-10-17 03:28 | Consultation ---
DATE OF CONSULTATION: 10/16/2016 CARDIOLOGY CONSULTATION CONSULTING PHYSICIAN: Vern Feliciano M.D. NOTE: INCOMPLETE DICTATION Vern Feliciano M.D. DR: SAMUEL JOB#: [id number] CC:
[2016-10-17] MEDS: Piperacillin/Tazobactam 3.375 GM in D5W 110 ML IVPB SCH (05:41)
[2016-10-17 06:13] LABS: BASOPHILS % (AUTO) 1.1 % (0.0-2.0); EOSINOPHILS % (AUTO) 0.1 % (0.0-3.0); LYMPHOCYTES % (AUTO) 17.4 % (20.0-45.0); MEAN CORPUSCULAR HEMOGLOBIN 29.7 PG (27.0-31.0); MEAN CORPUSCULAR VOLUME 93 FL (80-99); MEAN PLATELET VOLUME 8.9 FL (6.5-10.1); NEUTROPHILS % (AUTO) 69.4 % (45.0-75.0); PLATELET COUNT 148 K/UL (150-450); RED CELL DISTRIBUTION WIDTH 12.4 % (11.6-14.8); WHITE BLOOD COUNT 9.2 K/UL (4.8-10.8)
[2016-10-17] MEDS: Sodium Bicarbonate 150 ML in D5W 1000ml 1,000 ML IV SCH ×2 (06:36→18:23)
[2016-10-17 06:40] LABS: ALBUMIN/GLOBULIN RATIO 0.5 (1.0-2.7); CALCIUM 7.4 mg/dL (8.6-10.2); CREATININE 5.2 mg/dL (0.7-1.2); GLOMERULAR FILTRATION RATE 13.5 mL/min (>60); MAGNESIUM 1.2 mg/dL (1.7-2.5); PHOSPHORUS 2.4 mg/dL (2.5-4.8); POTASSIUM 3.1 mEQ/L (3.4-4.9); TOTAL PROTEIN 5.3 g/dL (6.6-8.7)
[2016-10-17 07:54] LABS: TROPONIN I 0.99 ng/mL (<=0.30)
[2016-10-17] MEDS: Phenytoin Susp 100mg/4ml ORAL SCH ×2 (08:52→13:59)
[2016-10-17] MEDS: PHENobarbital 32.4mg tab ORAL SCH ×3 (08:53→18:22)
[2016-10-17] MEDS: Heparin 5000 units/ml inj SUBQ SCH ×2 (08:54→21:36)
--- NOTE | 2016-10-17 10:41 | Diagnostic Imaging Report ---
Indication: Acute renal failure Technique: Grayscale and duplex images of the kidneys, retroperitoneum, and bladder were obtained. Comparison:None Findings: Right kidney measures 11.8 cm in length. Left kidney measures 12.4 cm in length. Both kidneys demonstrate normal echogenicity. No hydronephrosis. No focal abnormality. Normal inferior vena cava. Bladder is empty, contains a Hein catheter. There is trace ascites. There is incidental finding of gallstones. There is incidental finding of a left-sided pleural effusion Impression: Negative hydronephrosis Empty bladder containing Hein catheter Incidental findings of gallstones, ascites, and left pleural effusion.
--- NOTE | 2016-10-17 11:20 | Pulmonolgy Critical Care Note ---
Critical Care - Asmt/Plan Problems: (1) Respiratory failure, acute (2) ARF (acute renal failure) (3) Pneumonia (4) NSTEMI (non-ST elevated myocardial infarction) (5) History of CVA (cerebrovascular accident) Respiratory: monitor respiratory rate, adjust FIO2, CXR Cardiac: continue pressors, continue to monitor HR/BP, cardiac imaging Renal: other - will need Hd Infectious Disease: check cultures, continue antibiotics Gastrointestinal: start feedings, other - nutrition evaluation Endocrine: monitor blood sugar, check HgA1C Neurologic: PRN Ativan, PRN Morphine Affect: PRN ativan Prophylaxis: Protonix, Heparin Disposition: keep in ICU Time Spent (Minutes): 40 Notes Reviewed: monument installer, cardio Discussed with: nurses, consultants, 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 - Objective Last 24 Hour Vital Signs Date Time Temp Pulse Resp B/P Pulse Ox O2 Delivery O2 Flow Rate FiO2 10/17/16 10:45 84 20 40 10/17/16 09:07 82 21 40 10/17/16 07:09 85 20 40 10/17/16 07:00 78 21 143/64 100 Mechanical Ventilator 40 10/17/16 06:00 81 20 125/57 100 Mechanical Ventilator 40 10/17/16 05:08 86 20 40 10/17/16 05:00 85 20 122/57 100 Mechanical Ventilator 40 10/17/16 04:00 99.0 85 20 117/55 100 Mechanical Ventilator 40 10/17/16 04:00 40 10/17/16 04:00 85 10/17/16 03:25 84 20 40 10/17/16 03:00 86 20 124/51 100 Mechanical Ventilator 40 10/17/16 02:00 80 20 130/57 100 Mechanical Ventilator 40 10/17/16 01:09 83 20 40 10/17/16 01:00 83 20 129/54 100 Mechanical Ventilator 40 10/17/16 00:00 40 10/17/16 00:00 100.4 85 20 119/53 100 Mechanical Ventilator 40 10/17/16 00:00 85 10/16/16 23:23 86 22 40 10/16/16 23:00 88 20 133/57 100 Mechanical Ventilator 40 10/16/16 22:00 91 20 127/56 100 Mechanical Ventilator 40 10/16/16 21:00 84 21 106/47 100 Mechanical Ventilator 40 10/16/16 20:32 82 22 40 10/16/16 20:00 98.9 85 21 111/48 100 Mechanical Ventilator 40 10/16/16 20:00 85 10/16/16 20:00 40 10/16/16 19:00 81 19 125/50 100 Mechanical Ventilator 40 10/16/16 18:49 82 20 40 10/16/16 18:00 83 20 138/45 100 Mechanical Ventilator 40 10/16/16 17:04 86 20 40 10/16/16 17:00 88 20 146/56 100 Mechanical Ventilator 40 10/16/16 16:00 85 10/16/16 16:00 98.2 82 19 99/51 100 Mechanical Ventilator 40 10/16/16 16:00 40 10/16/16 15:07 93 20 40 10/16/16 15:00 88 20 130/56 100 Mechanical Ventilator 40 10/16/16 14:18 100.0 10/16/16 14:00 93 19 123/50 100 Mechanical Ventilator 40 10/16/16 13:08 92 20 40 10/16/16 13:00 93 20 133/60 100 Mechanical Ventilator 40 10/16/16 12:00 98.4 89 20 118/50 100 Mechanical Ventilator 40 10/16/16 12:00 40 10/16/16 12:00 88 10/16/16 11:25 89 20 40 Status: awake Condition: critical HEENT: atraumatic Neck: full ROM Lungs: clear, chest wall tender Heart: HR/BP stable, regular Abdomen: soft, active bowel sounds Extremities: no C/C/E Decubiti: location Micro: Microbiology Date/Time Source Procedure Growth Status 10/14/16 13:40 Blood Blood Culture - Preliminary NO GROWTH AFTER 48 HOURS Resulted 10/14/16 13:40 Blood Blood Culture - Preliminary NO GROWTH AFTER 48 HOURS Resulted 10/15/16 22:00 Sputum Gram Stain Pending Resulted 10/15/16 22:00 Sputum Sputum Culture - Preliminary NO GROWTH AFTER 24 HOURS Resulted 10/14/16 22:00 Nasal Nares MRSA Culture - Final NO METHICILLIN RESISTANT STAPH AUREUS... Complete 10/14/16 16:03 Nasal Nares MRSA Culture - Final NO METHICILLIN RESISTANT STAPH AUREUS... Complete 10/14/16 14:45 Urine,Clean Catch Urine Culture - Final NO GROWTH AFTER 48 HOURS Complete 10/14/16 22:00 Rectum VRE Culture - Final NO VANCOMYCIN RESISTANT ENTEROCOCCUS ... Complete 10/14/16 16:03 Rectum VRE Culture - Final NO VANCOMYCIN RESISTANT ENTEROCOCCUS ... Complete Accucheck: 189 Critical Care - Subjective ROS Limited/Unobtainable: Yes ICU Day: 3 Intubation Day: 3 Condition: critical EKG Rhythm: Sinus Rhythm FI02: 40 Vent Support Breath Rate: 20 Vent Support Mode: AC Vent Tidal Volume: 500 Sputum Amount: Small PEEP: 5.0 PIP: 39 Fluids: d5 NaCo2 at 100 cc.hour CXR: Et in good position RLL infiltrate better ET-Tube: 8.0 ET Position: 24 Labs: Laboratory Tests Test 10/16/16 13:00 10/16/16 19:00 10/17/16 04:55 Urine Eosinophils None seen Vancomycin Level Trough 21.0 ug/mL (5.0-12.0) H White Blood Count 9.2 K/UL (4.8-10.8) Red Blood Count 2.90 M/UL (4.70-6.10) L Hemoglobin 8.6 G/DL (14.2-18.0) L Hematocrit 27.0 % (42.0-52.0) L Mean Corpuscular Volume 93 FL (80-99) Mean Corpuscular Hemoglobin 29.7 PG (27.0-31.0) Mean Corpuscular Hemoglobin Concent 32.0 G/DL (32.0-36.0) Red Cell Distribution Width 12.4 % (11.6-14.8) Platelet Count 148 K/UL (150-450) L Mean Platelet Volume 8.9 FL (6.5-10.1) Neutrophils (%) (Auto) 69.4 % (45.0-75.0) Lymphocytes (%) (Auto) 17.4 % (20.0-45.0) L Monocytes (%) (Auto) 12.0 % (1.0-10.0) H Eosinophils (%) (Auto) 0.1 % (0.0-3.0) Basophils (%) (Auto) 1.1 % (0.0-2.0) Sodium Level 147 mEQ/L (135-145) H Potassium Level 3.1 mEQ/L (3.4-4.9) L Chloride Level 101 mEQ/L (98-107) Carbon Dioxide Level 27 mEQ/L (20-30) Anion Gap 19 (5-15) H Blood Urea Nitrogen 60 mg/dL (7-23) H Creatinine 5.2 mg/dL (0.7-1.2) H Estimat Glomerular Filtration Rate 13.5 mL/min (>60) Glucose Level 192 mg/dL (74-106) #H Calcium Level 7.4 mg/dL (8.6-10.2) L Phosphorus Level 2.4 mg/dL (2.5-4.8) L Magnesium Level 1.2 mg/dL (1.7-2.5) L Total Bilirubin 0.6 mg/dL (0.0-1.2) Aspartate Amino Transf (AST/SGOT) 39 U/L (5-40) Alanine Aminotransferase (ALT/SGPT) 25 U/L (3-41) Alkaline Phosphatase 53 U/L (40-129) Troponin I 0.99 ng/mL (<=0.30) *H Total Protein 5.3 g/dL (6.6-8.7) L Albumin 1.9 g/dL (3.5-5.2) L Globulin 3.4 g/dL Albumin/Globulin Ratio 0.5 (1.0-2.7) L BELTRAN OROSCO Oct 17, 2016 11:19
--- NOTE | 2016-10-17 11:23 | Diagnostic Imaging Report ---
Indication: DYSPNEA Technique: One view of the chest Comparison: 10/15/2016 Findings: There is interim improvement of previously demonstrated right lung infiltrates, although considerable disease persists in the mid and lower lungs. Less prominent interstitial opacities in the left lung persist. Previously demonstrated left costophrenic angle blunting has resolved Stable satisfactory position of endotracheal tube. Interim placement of a nasogastric tube, tip projecting beyond the edge of the image, presumably within the stomach. The heart size is normal. Impression: Increasing but persistent right lung parenchymal disease, over 2 days Suspect decreasing left pleural fluid Satisfactory nasogastric intubation
--- NOTE | 2016-10-17 11:35 | Nephrology Progress Note ---
Assessment/Plan Problem List: (1) ARF (acute renal failure) Assessment: oliguric (2) NSTEMI (non-ST elevated myocardial infarction) (3) Elevated troponin (4) Respiratory failure, acute Plan needs dialysis arrange [place] by radiology Discussed with RN Subjective Subjective Remains intubated Objective Objective Last 24 Hour Vital Signs Date Time Temp Pulse Resp B/P Pulse Ox O2 Delivery O2 Flow Rate FiO2 10/17/16 10:45 84 20 40 10/17/16 09:07 82 21 40 10/17/16 07:09 85 20 40 10/17/16 07:00 78 21 143/64 100 Mechanical Ventilator 40 10/17/16 06:00 81 20 125/57 100 Mechanical Ventilator 40 10/17/16 05:08 86 20 40 10/17/16 05:00 85 20 122/57 100 Mechanical Ventilator 40 10/17/16 04:00 99.0 85 20 117/55 100 Mechanical Ventilator 40 10/17/16 04:00 40 10/17/16 04:00 85 10/17/16 03:25 84 20 40 10/17/16 03:00 86 20 124/51 100 Mechanical Ventilator 40 10/17/16 02:00 80 20 130/57 100 Mechanical Ventilator 40 10/17/16 01:09 83 20 40 10/17/16 01:00 83 20 129/54 100 Mechanical Ventilator 40 10/17/16 00:00 40 10/17/16 00:00 100.4 85 20 119/53 100 Mechanical Ventilator 40 10/17/16 00:00 85 10/16/16 23:23 86 22 40 10/16/16 23:00 88 20 133/57 100 Mechanical Ventilator 40 10/16/16 22:00 91 20 127/56 100 Mechanical Ventilator 40 10/16/16 21:00 84 21 106/47 100 Mechanical Ventilator 40 10/16/16 20:32 82 22 40 10/16/16 20:00 98.9 85 21 111/48 100 Mechanical Ventilator 40 10/16/16 20:00 85 10/16/16 20:00 40 10/16/16 19:00 81 19 125/50 100 Mechanical Ventilator 40 10/16/16 18:49 82 20 40 10/16/16 18:00 83 20 138/45 100 Mechanical Ventilator 40 10/16/16 17:04 86 20 40 10/16/16 17:00 88 20 146/56 100 Mechanical Ventilator 40 10/16/16 16:00 85 10/16/16 16:00 98.2 82 19 99/51 100 Mechanical Ventilator 40 10/16/16 16:00 40 10/16/16 15:07 93 20 40 10/16/16 15:00 88 20 130/56 100 Mechanical Ventilator 40 10/16/16 14:18 100.0 10/16/16 14:00 93 19 123/50 100 Mechanical Ventilator 40 10/16/16 13:08 92 20 40 10/16/16 13:00 93 20 133/60 100 Mechanical Ventilator 40 10/16/16 12:00 98.4 89 20 118/50 100 Mechanical Ventilator 40 10/16/16 12:00 40 10/16/16 12:00 88 Bad tableLaboratory Tests 10/16/16 13:00: Urine Eosinophils None seen 10/16/16 19:00: Vancomycin Level Trough 21.0H 10/17/16 04:55: White Blood Count 9.2, Red Blood Count 2.90L, Hemoglobin 8.6L, Hematocrit 27.0L , Mean Corpuscular Volume 93, Mean Corpuscular Hemoglobin 29.7, Mean Corpuscular Hemoglobin Concent 32.0, Red Cell Distribution Width 12.4, Platelet Count 148L, Mean Platelet Volume 8.9, Neutrophils (%) (Auto) 69.4, Lymphocytes ( %) (Auto) 17.4L, Monocytes (%) (Auto) 12.0H, Eosinophils (%) (Auto) 0.1, Basophils (%) (Auto) 1.1, Sodium Level 147H, Potassium Level 3.1L, Chloride Level 101, Carbon Dioxide Level 27, Anion Gap 19H, Blood Urea Nitrogen 60H, Creatinine 5.2H, Estimat Glomerular Filtration Rate 13.5, Glucose Level 192#H, Calcium Level 7.4L, Phosphorus Level 2.4L, Magnesium Level 1.2L, Total Bilirubin 0.6, Aspartate Amino Transf (AST/SGOT) 39, Alanine Aminotransferase ( ALT/SGPT) 25, Alkaline Phosphatase 53, Troponin I 0.99*H, Total Protein 5.3L, Albumin 1.9L, Globulin 3.4, Albumin/Globulin Ratio 0.5L Height (Feet): 5 Height (Inches): 6.00 Weight (Pounds): 140 Cardiovascular: normal rate Respiratory/Chest: rhonchi - bilaterally Extremities: moderate edema SCOUT LANGSTON Oct 17, 2016 11:35
[2016-10-17] MEDS ORDERED: Vancomycin 750mg/D5W 275ml IVPB SCH ×2 (12:00)
--- NOTE | 2016-10-17 16:01 | Internal Med Progress Note ---
Subjective Date of Service: Oct 17, 2016 Physician Name Ann Haq Attending Physician Bubba Osullivan MD Current Medications Medications (Trade) Dose Ordered Sig/Obie Route PRN Reason Start Time Stop Time Status Last Admin Dose Admin Acetaminophen (Tylenol) 650 mg Q4H PRN ORAL fever 10/14/16 17:30 11/13/16 17:29 10/16/16 13:19 Al Hydroxide/Mg Hydroxide (Mylanta II) 30 ml Q6H PRN ORAL dyspepsia 10/14/16 17:30 11/13/16 17:29 Albuterol/ Ipratropium (DuoNeb 0.5-3(2.5)mg/3ml) 3 ml Q4H PRN HHN Shortness of Breath 10/14/16 17:30 10/19/16 17:29 Clopidogrel Bisulfate (Plavix) 75 mg DAILY ORAL 10/15/16 09:00 11/14/16 08:59 10/17/16 08:52 Dextrose (Dextrose 50%) STAT PRN IV Hypoglycemia 10/14/16 17:30 11/13/16 17:29 Heparin Sodium (Porcine) (Heparin 5000 units/ml) 5,000 units EVERY 12 HOURS SUBQ 10/14/16 21:00 11/13/16 20:59 10/17/16 08:54 Insulin Aspart EVERY 6 HOURS SUBQ 10/16/16 12:00 11/15/16 11:59 10/17/16 12:56 Levofloxacin 100 ml @ 100 mls/hr Q48H IVPB 10/17/16 12:00 10/24/16 11:59 10/17/16 12:40 Levofloxacin (Levaquin) 50 ml @ 50 mls/hr Q48H IVPB 10/18/16 18:00 10/25/16 17:59 Nitroglycerin (Ntg) 0.4 mg Q5MIN X 3 DOSES PRN SL Prn Chest Pain 10/14/16 17:30 11/13/16 17:29 Ondansetron HCl (Zofran) 4 mg Q6H PRN IVP Nausea & Vomiting 10/14/16 17:30 11/13/16 17:29 Phenobarbital (PHENobarbital) 32.4 mg THREE TIMES A DAY ORAL 10/14/16 18:00 11/13/16 17:59 10/17/16 14:00 Phenytoin (Dilantin) 300 mg DAILY ORAL 10/18/16 09:00 11/17/16 08:59 Piperacillin Sod/ Tazobactam Sod 2.25 gm/Dextrose 55 ml @ 110 mls/hr Q8HR IV 10/17/16 16:00 10/22/16 15:59 Polyethylene Glycol (Miralax) 17 gm DAILYPRN PRN ORAL Constipation 10/14/16 17:30 11/13/16 17:29 Sodium Bicarbonate/ Dextrose (Sodium Bicarbonate/D5W 1000ml) 1,150 ml @ 100 mls/hr [id number] IV 10/15/16 21:00 11/14/16 20:59 10/17/16 06:36 Sodium Chloride 1,000 ml @ 500 mls/hr Q2H PRN IVLG sbp<90 during hd 10/18/16 11:37 11/17/16 11:36 Vancomycin HCl 1 ea 1 ea DAILY PRN MISC Per rx protocol 10/14/16 17:30 11/13/16 17:29 Allergies: Coded Allergies: No Known Allergies (Unverified , 10/14/16) ROS Limited/Unobtainable: Yes Subjective 70 YO M admitted with shortness of breath, now pneumonia. Cover for Int Richard-Dr Osullivan. ICU. Intubated and sedated. Off pressors. Objective Last Vital Signs Date Time Temp Pulse Resp B/P Pulse Ox O2 Delivery O2 Flow Rate FiO2 10/17/16 15:00 78 20 117/55 100 Mechanical Ventilator 40 10/17/16 12:00 97.9 10/14/16 14:45 15.0 Laboratory Tests Test 10/16/16 19:00 10/17/16 04:55 Vancomycin Level Trough 21.0 ug/mL (5.0-12.0) H White Blood Count 9.2 K/UL (4.8-10.8) Red Blood Count 2.90 M/UL (4.70-6.10) L Hemoglobin 8.6 G/DL (14.2-18.0) L Hematocrit 27.0 % (42.0-52.0) L Mean Corpuscular Volume 93 FL (80-99) Mean Corpuscular Hemoglobin 29.7 PG (27.0-31.0) Mean Corpuscular Hemoglobin Concent 32.0 G/DL (32.0-36.0) Red Cell Distribution Width 12.4 % (11.6-14.8) Platelet Count 148 K/UL (150-450) L Mean Platelet Volume 8.9 FL (6.5-10.1) Neutrophils (%) (Auto) 69.4 % (45.0-75.0) Lymphocytes (%) (Auto) 17.4 % (20.0-45.0) L Monocytes (%) (Auto) 12.0 % (1.0-10.0) H Eosinophils (%) (Auto) 0.1 % (0.0-3.0) Basophils (%) (Auto) 1.1 % (0.0-2.0) Sodium Level 147 mEQ/L (135-145) H Potassium Level 3.1 mEQ/L (3.4-4.9) L Chloride Level 101 mEQ/L (98-107) Carbon Dioxide Level 27 mEQ/L (20-30) Anion Gap 19 (5-15) H Blood Urea Nitrogen 60 mg/dL (7-23) H Creatinine 5.2 mg/dL (0.7-1.2) H Estimat Glomerular Filtration Rate 13.5 mL/min (>60) Glucose Level 192 mg/dL (74-106) #H Calcium Level 7.4 mg/dL (8.6-10.2) L Phosphorus Level 2.4 mg/dL (2.5-4.8) L Magnesium Level 1.2 mg/dL (1.7-2.5) L Total Bilirubin 0.6 mg/dL (0.0-1.2) Aspartate Amino Transf (AST/SGOT) 39 U/L (5-40) Alanine Aminotransferase (ALT/SGPT) 25 U/L (3-41) Alkaline Phosphatase 53 U/L (40-129) Troponin I 0.99 ng/mL (<=0.30) *H Total Protein 5.3 g/dL (6.6-8.7) L Albumin 1.9 g/dL (3.5-5.2) L Globulin 3.4 g/dL Albumin/Globulin Ratio 0.5 (1.0-2.7) L Microbiology Date/Time Source Procedure Growth Status 10/15/16 22:00 Sputum Gram Stain - Final Resulted 10/15/16 22:00 Sputum Sputum Culture - Preliminary NO GROWTH AFTER 24 HOURS Resulted 10/14/16 22:00 Nasal Nares MRSA Culture - Final NO METHICILLIN RESISTANT STAPH AUREUS... Complete 10/14/16 16:03 Nasal Nares MRSA Culture - Final NO METHICILLIN RESISTANT STAPH AUREUS... Complete 10/14/16 22:00 Rectum VRE Culture - Final NO VANCOMYCIN RESISTANT ENTEROCOCCUS ... Complete 10/14/16 16:03 Rectum VRE Culture - Final NO VANCOMYCIN RESISTANT ENTEROCOCCUS ... Complete Bad tableObjective General Appearance: WD/WN, moderate distress EENT: normal ENT inspection Neck: non-tender, normal alignment, supple Cardiovascular: normal peripheral pulses, normal rate, regular rhythm, no gallop/murmur, no JVD Respiratory/Chest: Mech Vent; respiratory distress, crackles/rales, rhonchi - bilaterally, expiratory wheezing Abdomen: normal bowel sounds, non tender, soft, no organomegaly, no mass Skin: normal pigmentation, warm/dry Assessment/Plan Problem List: (1) CHF (congestive heart failure) (2) Elevated troponin Assessment & Plan: See cardiology consult-Dr Feliciano. (3) Renal failure Assessment & Plan: See nephrology consult-Dr Stern (4) Diabetes mellitus Assessment & Plan: Cont novolog sliding scale. (5) HTN (hypertension) Assessment & Plan: Hypotensive off pressors. (6) Cerebral vascular disease (7) Respiratory failure, acute Assessment & Plan: See pulmonary note. (8) Pneumonia Assessment & Plan: Bilateral lower lobe. Continue levaquin, vanco and zosyn per ID Status: not improved ANN HAQ Oct 17, 2016 16:01
--- NOTE | 2016-10-17 16:20 | Diagnostic Imaging Report ---
Indication: Acute renal failure Technique: Procedure performed at bedside. Total sterile technique, including sterile probe cover and sterile gel, sterile gloves, hand hygiene, hat, mask, sterile gown, large sterile drape, and preparation with 2% chlorhexidine utilized. Local anesthesia with 1% lidocaine. Under real-time ultrasound guidance, puncture right internal jugular vein using 18-gauge needle, passage 0.035 guidewire, over which was passed serial dilators and then a 13 Bulgarian 16 cm triple-lumen temporary dialysis catheter. Guidewire was removed. Catheter ports were aspirated and flushed. The catheter was fixed to the skin. Patient tolerated procedure well. A chest x-ray was obtained, documents catheter tip position at the cavoatrial junction. Comparison: None Findings: None Impression: Successful bedside placement of right transjugular temporary dialysis catheter, as described.
[2016-10-17] MEDS: Zosyn 2.25 gm in D5W 55ml IV SCH ×2 (16:34→21:35)
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
--- NOTE | 2016-10-17 23:31 | Infectious Diseases Prog Note ---
Assessment/Plan Assessment/Plan A: The patient is a 70-year-old male with Fever leukocytosis , SP Sepsis pneumonia possible aspiration. SP ight transjugular temporary dialysis CVA Hypertension. History of diabetes. BiPAP at home. PLAN: continue the patient on , Levquin and Zosyn d# 3 , DC vancomycin d# 3 Monitor CBC , BMP Monitor cultures (blood, urine, and sputum) vebt support Subjective Constitutional: Reports: fever Allergies: Coded Allergies: No Known Allergies (Unverified , 10/14/16) Objective Vital Signs Last 24 Hour Vital Signs Date Time Temp Pulse Resp B/P Pulse Ox O2 Delivery O2 Flow Rate FiO2 10/17/16 23:06 88 20 40 10/17/16 23:00 85 19 124/59 100 Mechanical Ventilator 40 10/17/16 22:07 Mechanical Ventilator 15.0 40 10/17/16 22:00 Mechanical Ventilator 40 10/17/16 22:00 87 20 126/59 100 Mechanical Ventilator 40 10/17/16 21:06 99 28 40 10/17/16 21:00 90 20 134/58 100 Mechanical Ventilator 40 10/17/16 20:00 40 10/17/16 20:00 98 10/17/16 20:00 98.2 97 19 157/60 100 Mechanical Ventilator 40 10/17/16 19:29 92 20 40 10/17/16 19:00 84 20 152/82 100 Mechanical Ventilator 40 10/17/16 18:50 Mechanical Ventilator 40 10/17/16 18:00 84 20 140/82 100 Mechanical Ventilator 40 10/17/16 17:24 90 20 40 10/17/16 17:00 92 19 115/54 100 Mechanical Ventilator 40 10/17/16 16:00 98.1 83 20 133/53 100 Mechanical Ventilator 40 10/17/16 16:00 40 10/17/16 16:00 88 10/17/16 15:00 78 20 117/55 100 Mechanical Ventilator 40 10/17/16 14:53 83 21 40 10/17/16 14:00 82 20 126/63 100 Mechanical Ventilator 40 10/17/16 13:00 88 20 143/65 100 Mechanical Ventilator 40 10/17/16 12:55 81 17 40 10/17/16 12:00 40 10/17/16 12:00 97.9 81 20 138/68 100 Mechanical Ventilator 40 10/17/16 12:00 85 3/9/17 11:00 81 20 150/72 100 Mechanical Ventilator 40 10/17/16 10:45 84 20 40 10/17/16 10:00 80 19 138/60 100 Mechanical Ventilator 40 10/17/16 09:07 82 21 40 10/17/16 09:00 83 20 141/66 100 Mechanical Ventilator 40 10/17/16 08:00 98.0 82 20 150/70 100 Mechanical Ventilator 40 10/17/16 08:00 40 10/17/16 08:00 84 10/17/16 07:09 85 20 40 10/17/16 07:00 78 21 143/64 100 Mechanical Ventilator 40 10/17/16 06:00 81 20 125/57 100 Mechanical Ventilator 40 10/17/16 05:08 86 20 40 10/17/16 05:00 85 20 122/57 100 Mechanical Ventilator 40 10/17/16 04:00 99.0 85 20 117/55 100 Mechanical Ventilator 40 10/17/16 04:00 40 10/17/16 04:00 85 10/17/16 03:25 84 20 40 10/17/16 03:00 86 20 124/51 100 Mechanical Ventilator 40 10/17/16 02:00 80 20 130/57 100 Mechanical Ventilator 40 10/17/16 01:09 83 20 40 10/17/16 01:00 83 20 129/54 100 Mechanical Ventilator 40 10/17/16 00:00 40 10/17/16 00:00 100.4 85 20 119/53 100 Mechanical Ventilator 40 10/17/16 00:00 85 Height (Feet): 5 Height (Inches): 6.00 Weight (Pounds): 140 Respiratory/Chest: no respiratory distress Cardiovascular: regular rhythm Abdomen: non distended Microbiology Date/Time Source Procedure Growth Status 10/15/16 22:00 Sputum Gram Stain - Final Resulted 10/15/16 22:00 Sputum Sputum Culture - Preliminary NO GROWTH AFTER 24 HOURS Resulted Laboratory Tests Test 10/17/16 04:55 White Blood Count 9.2 K/UL (4.8-10.8) Red Blood Count 2.90 M/UL (4.70-6.10) L Hemoglobin 8.6 G/DL (14.2-18.0) L Hematocrit 27.0 % (42.0-52.0) L Mean Corpuscular Volume 93 FL (80-99) Mean Corpuscular Hemoglobin 29.7 PG (27.0-31.0) Mean Corpuscular Hemoglobin Concent 32.0 G/DL (32.0-36.0) Red Cell Distribution Width 12.4 % (11.6-14.8) Platelet Count 148 K/UL (150-450) L Mean Platelet Volume 8.9 FL (6.5-10.1) Neutrophils (%) (Auto) 69.4 % (45.0-75.0) Lymphocytes (%) (Auto) 17.4 % (20.0-45.0) L Monocytes (%) (Auto) 12.0 % (1.0-10.0) H Eosinophils (%) (Auto) 0.1 % (0.0-3.0) Basophils (%) (Auto) 1.1 % (0.0-2.0) Sodium Level 147 mEQ/L (135-145) H Potassium Level 3.1 mEQ/L (3.4-4.9) L Chloride Level 101 mEQ/L (98-107) Carbon Dioxide Level 27 mEQ/L (20-30) Anion Gap 19 (5-15) H Blood Urea Nitrogen 60 mg/dL (7-23) H Creatinine 5.2 mg/dL (0.7-1.2) H Estimat Glomerular Filtration Rate 13.5 mL/min (>60) Glucose Level 192 mg/dL (74-106) #H Calcium Level 7.4 mg/dL (8.6-10.2) L Phosphorus Level 2.4 mg/dL (2.5-4.8) L Magnesium Level 1.2 mg/dL (1.7-2.5) L Total Bilirubin 0.6 mg/dL (0.0-1.2) Aspartate Amino Transf (AST/SGOT) 39 U/L (5-40) Alanine Aminotransferase (ALT/SGPT) 25 U/L (3-41) Alkaline Phosphatase 53 U/L (40-129) Troponin I 0.99 ng/mL (<=0.30) *H Total Protein 5.3 g/dL (6.6-8.7) L Albumin 1.9 g/dL (3.5-5.2) L Globulin 3.4 g/dL Albumin/Globulin Ratio 0.5 (1.0-2.7) L Current Medications Medications (Trade) Dose Ordered Sig/Obie Route PRN Reason Start Time Stop Time Status Last Admin Dose Admin Acetaminophen (Tylenol) 650 mg Q4H PRN ORAL fever 10/14/16 17:30 11/13/16 17:29 10/16/16 13:19 Al Hydroxide/Mg Hydroxide (Mylanta II) 30 ml Q6H PRN ORAL dyspepsia 10/14/16 17:30 11/13/16 17:29 Albuterol/ Ipratropium (DuoNeb 0.5-3(2.5)mg/3ml) 3 ml Q4H PRN HHN Shortness of Breath 10/14/16 17:30 10/19/16 17:29 Clopidogrel Bisulfate (Plavix) 75 mg DAILY ORAL 10/15/16 09:00 11/14/16 08:59 10/17/16 08:52 Dextrose (Dextrose 50%) STAT PRN IV Hypoglycemia 10/14/16 17:30 11/13/16 17:29 Heparin Sodium (Porcine) (Heparin 5000 units/ml) 5,000 units EVERY 12 HOURS SUBQ 10/14/16 21:00 11/13/16 20:59 10/17/16 21:36 Insulin Aspart EVERY 6 HOURS SUBQ 10/16/16 12:00 11/15/16 11:59 10/17/16 18:23 Levofloxacin 100 ml @ 100 mls/hr Q48H IVPB 10/17/16 12:00 10/24/16 11:59 10/17/16 12:40 Levofloxacin (Levaquin) 50 ml @ 50 mls/hr Q48H IVPB 10/18/16 18:00 10/25/16 17:59 Nitroglycerin (Ntg) 0.4 mg Q5MIN X 3 DOSES PRN SL Prn Chest Pain 10/14/16 17:30 11/13/16 17:29 Ondansetron HCl (Zofran) 4 mg Q6H PRN IVP Nausea & Vomiting 10/14/16 17:30 11/13/16 17:29 Phenobarbital (PHENobarbital) 32.4 mg THREE TIMES A DAY ORAL 10/14/16 18:00 11/13/16 17:59 10/17/16 18:22 Phenytoin (Dilantin) 300 mg DAILY ORAL 10/18/16 09:00 11/17/16 08:59 Piperacillin Sod/ Tazobactam Sod 2.25 gm/Dextrose 55 ml @ 110 mls/hr Q8HR IV 10/17/16 16:00 10/22/16 15:59 10/17/16 21:35 Polyethylene Glycol (Miralax) 17 gm DAILYPRN PRN ORAL Constipation 10/14/16 17:30 11/13/16 17:29 Sodium Bicarbonate/ Dextrose (Sodium Bicarbonate/D5W 1000ml) 1,150 ml @ 100 mls/hr [id number] IV 10/15/16 21:00 11/14/16 20:59 10/17/16 18:23 Sodium Chloride 1,000 ml @ 500 mls/hr Q2H PRN IVLG sbp<90 during hd 10/18/16 11:37 11/17/16 11:36 Vancomycin HCl 1 ea 1 ea DAILY PRN MISC Per rx protocol 10/14/16 17:30 11/13/16 17:29 SOM PEREZ M.D. Oct 17, 2016 23:31
[2016-10-18] VITALS (20 sets, daily range): BP systolic 118–150; BP diastolic 46–66
[2016-10-18] MEDS: NovoLOG Insulin Flexpen SUBQ SCH ×4 (00:16→18:06)
[2016-10-18 06:11] LABS: BASOPHILS % (AUTO) 0.7 % (0.0-2.0); EOSINOPHILS % (AUTO) 0.5 % (0.0-3.0); LYMPHOCYTES % (AUTO) 23.3 % (20.0-45.0); MEAN CORPUSCULAR HEMOGLOBIN 29.4 PG (27.0-31.0); MEAN CORPUSCULAR HGB CONC 31.9 G/DL (32.0-36.0); MEAN CORPUSCULAR VOLUME 92 FL (80-99); MEAN PLATELET VOLUME 9.7 FL (6.5-10.1); MONOCYTES % (AUTO) 13.7 % (1.0-10.0); NEUTROPHILS % (AUTO) 61.8 % (45.0-75.0); PLATELET COUNT 166 K/UL (150-450); RED BLOOD COUNT 2.72 M/UL (4.70-6.10); RED CELL DISTRIBUTION WIDTH 12.9 % (11.6-14.8); WHITE BLOOD COUNT 8.3 K/UL (4.8-10.8)
[2016-10-18] MEDS: Zosyn 2.25 gm in D5W 55ml IV SCH ×2 (06:11→14:22)
[2016-10-18] MEDS: Sodium Bicarbonate 150 ML in D5W 1000ml 1,000 ML IV SCH (06:11)
[2016-10-18 06:50] LABS: ALBUMIN/GLOBULIN RATIO 0.6 (1.0-2.7); CALCIUM 7.3 mg/dL (8.6-10.2); CREATININE 4.8 mg/dL (0.7-1.2); GLOMERULAR FILTRATION RATE 14.8 mL/min (>60); MAGNESIUM 1.6 mg/dL (1.7-2.5); TOTAL PROTEIN 5.4 g/dL (6.6-8.7)
[2016-10-18 07:01] LABS: POTASSIUM 2.7 mEQ/L (3.4-4.9)
[2016-10-18 07:43] LABS: TROPONIN I 0.62 ng/mL (<=0.30)
[2016-10-18] MEDS ORDERED: KCl 10% 40mEq/30ml liquid NG ONE (08:30)
[2016-10-18] MEDS: PHENobarbital 32.4mg tab ORAL SCH ×3 (08:56→17:55)
[2016-10-18] MEDS: Heparin 5000 units/ml inj SUBQ SCH (08:58)
[2016-10-18] MEDS ORDERED: Phenytoin Susp 100mg/4ml ORAL SCH (09:00)
[2016-10-18 09:27] LABS: ABG ALLEN TEST POSITIVE; ABG BASE EXCESS 9.8
--- NOTE | 2016-10-18 10:53 | Pulmonolgy Critical Care Note ---
Critical Care - Asmt/Plan Problems: (1) Respiratory failure, acute (2) ARF (acute renal failure) (3) Pneumonia (4) NSTEMI (non-ST elevated myocardial infarction) (5) History of CVA (cerebrovascular accident) Respiratory: monitor respiratory rate, adjust FIO2, CXR Cardiac: continue to monitor HR/BP Renal: F/U I&O, keep IV fluid, check electrolytes Infectious Disease: check cultures, continue antibiotics Gastrointestinal: continue feedings/current rate Endocrine: continue sliding scale insulin Hematologic: monitor H/H, transfuse if hgb<8.5 Neurologic: PRN Ativan, PRN Morphine, keep patient comfortable Prophylaxis: Protonix, Heparin Notes Reviewed: distribution technician, cardio, renal Discussed with: nurses, consultants, adult protective caseworkerenergy manager - Objective Last 24 Hour Vital Signs Date Time Temp Pulse Resp B/P Pulse Ox O2 Delivery O2 Flow Rate FiO2 10/18/16 10:00 81 20 132/64 100 Mechanical Ventilator 40 10/18/16 09:30 99 10/18/16 09:30 87 20 40 10/18/16 09:00 80 20 129/63 100 Mechanical Ventilator 40 10/18/16 08:00 40 10/18/16 08:00 79 20 122/64 100 Mechanical Ventilator 40 10/18/16 08:00 85 10/18/16 07:30 84 21 40 10/18/16 07:00 88 20 142/58 100 Mechanical Ventilator 40 10/18/16 06:00 80 20 134/54 100 Mechanical Ventilator 10/18/16 05:00 84 22 118/52 100 Mechanical Ventilator 10/18/16 04:51 86 20 40 10/18/16 04:14 88 10/18/16 04:13 40 10/18/16 04:00 99.0 88 22 127/61 100 Mechanical Ventilator 40 10/18/16 03:12 82 20 40 10/18/16 03:00 83 20 125/55 100 Mechanical Ventilator 40 10/18/16 02:00 85 23 133/59 100 Mechanical Ventilator 40 10/18/16 01:00 84 21 125/56 100 Mechanical Ventilator 40 10/18/16 00:47 85 20 40 10/18/16 00:24 90 10/18/16 00:23 40 10/18/16 00:00 99.9 90 25 133/63 100 Mechanical Ventilator 40 10/17/16 23:06 88 20 40 10/17/16 23:00 85 19 124/59 100 Mechanical Ventilator 40 10/17/16 22:07 Mechanical Ventilator 15.0 40 10/17/16 22:00 Mechanical Ventilator 40 10/17/16 22:00 87 20 126/59 100 Mechanical Ventilator 40 10/17/16 21:06 99 28 40 10/17/16 21:00 90 20 134/58 100 Mechanical Ventilator 40 10/17/16 20:00 40 10/17/16 20:00 98 10/17/16 20:00 98.2 97 19 157/60 100 Mechanical Ventilator 40 10/17/16 19:29 92 20 40 10/17/16 19:00 84 20 152/82 100 Mechanical Ventilator 40 10/17/16 18:50 Mechanical Ventilator 40 10/17/16 18:00 84 20 140/82 100 Mechanical Ventilator 40 10/17/16 17:24 90 20 40 10/17/16 17:00 92 19 115/54 100 Mechanical Ventilator 40 10/17/16 16:00 98.1 83 20 133/53 100 Mechanical Ventilator 40 10/17/16 16:00 40 10/17/16 16:00 88 10/17/16 15:00 78 20 117/55 100 Mechanical Ventilator 40 10/17/16 14:53 83 21 40 10/17/16 14:00 82 20 126/63 100 Mechanical Ventilator 40 10/17/16 13:00 88 20 143/65 100 Mechanical Ventilator 40 10/17/16 12:55 81 17 40 10/17/16 12:00 40 10/17/16 12:00 97.9 81 20 138/68 100 Mechanical Ventilator 40 10/17/16 12:00 85 10/17/16 11:00 81 20 150/72 100 Mechanical Ventilator 40 Status: awake Condition: critical HEENT: atraumatic, normocephalic Neck: full ROM Lungs: clear, chest wall tender Heart: HR/BP stable Abdomen: soft, non-tender, active bowel sounds Extremities: no C/C/E, edema Decubiti: stage Micro: Microbiology Date/Time Source Procedure Growth Status 10/15/16 22:00 Sputum Gram Stain - Final Complete 10/15/16 22:00 Sputum Sputum Culture - Final NO GROWTH AFTER 48 HOURS Complete Accucheck: 148 Critical Care - Subjective ROS Limited/Unobtainable: Yes ICU Day: 4 Intubation Day: 4 Interval Events: vital sing more stable EKG Rhythm: Sinus Rhythm FI02: 40 Vent Support Breath Rate: 8 Vent Support Mode: AC Vent Tidal Volume: 500 Sputum Amount: Small PEEP: 5.0 PIP: 43 Secretions: clear, little Fluids: d5 hco3 Tube Feeding Amount: 0 I&O: Intake and Output 10/17/16 10/18/16 19:00 07:00 Intake Total 1455 ml 1180 ml Output Total 0 ml 0 ml Balance 1455 ml 1180 ml IV Total 1455 ml 1160 ml Tube Feeding 20 ml Output Urine Total 0 ml 0 ml Hemodialysis UF 0 ml # Bowel Movements 1 3 CXR: improving infiltrate, ET in good position ET-Tube: 8.0 ET Position: 24 Labs: Laboratory Tests Test 10/18/16 04:45 10/18/16 09:18 White Blood Count 8.3 K/UL (4.8-10.8) Red Blood Count 2.72 M/UL (4.70-6.10) L Hemoglobin 8.0 G/DL (14.2-18.0) L Hematocrit 25.0 % (42.0-52.0) L Mean Corpuscular Volume 92 FL (80-99) Mean Corpuscular Hemoglobin 29.4 PG (27.0-31.0) Mean Corpuscular Hemoglobin Concent 31.9 G/DL (32.0-36.0) L Red Cell Distribution Width 12.9 % (11.6-14.8) Platelet Count 166 K/UL (150-450) Mean Platelet Volume 9.7 FL (6.5-10.1) Neutrophils (%) (Auto) 61.8 % (45.0-75.0) Lymphocytes (%) (Auto) 23.3 % (20.0-45.0) Monocytes (%) (Auto) 13.7 % (1.0-10.0) H Eosinophils (%) (Auto) 0.5 % (0.0-3.0) Basophils (%) (Auto) 0.7 % (0.0-2.0) Sodium Level 137 mEQ/L (135-145) # Potassium Level 2.7 mEQ/L (3.4-4.9) *L Chloride Level 91 mEQ/L (98-107) L Carbon Dioxide Level 31 mEQ/L (20-30) H Anion Gap 15 (5-15) Blood Urea Nitrogen 44 mg/dL (7-23) H Creatinine 4.8 mg/dL (0.7-1.2) H Estimat Glomerular Filtration Rate 14.8 mL/min (>60) Glucose Level 143 mg/dL (74-106) H Calcium Level 7.3 mg/dL (8.6-10.2) L Phosphorus Level 2.0 mg/dL (2.5-4.8) L Magnesium Level 1.6 mg/dL (1.7-2.5) L Total Bilirubin 0.6 mg/dL (0.0-1.2) Aspartate Amino Transf (AST/SGOT) 31 U/L (5-40) Alanine Aminotransferase (ALT/SGPT) 20 U/L (3-41) Alkaline Phosphatase 45 U/L (40-129) Troponin I 0.62 ng/mL (<=0.30) *H Total Protein 5.4 g/dL (6.6-8.7) L Albumin 2.1 g/dL (3.5-5.2) L Globulin 3.3 g/dL Albumin/Globulin Ratio 0.6 (1.0-2.7) L Arterial Blood pH 7.496 (7.350-7.450) Arterial Blood Partial Pressure CO2 45.0 mmHg (35.0-45.0) Arterial Blood Partial Pressure O2 90.0 mmHg (75.0-100.0) Arterial Blood HCO3 34.0 mmol/L (22.0-26.0) H Arterial Blood Oxygen Saturation 97.0 % (92.0-98.0) Arterial Blood Base Excess 9.8 Hi Test Positive BELTRAN OROSCO Oct 18, 2016 10:53
--- NOTE | 2016-10-18 11:14 | Infectious Diseases Prog Note ---
Assessment/Plan Assessment/Plan A: The patient is a 70-year-old male with Fever , SP leukocytosis , SP Sepsis improving pneumonia SCx : neg possible aspiration. SP ight transjugular temporary dialysis CVA Hypertension. History of diabetes. BiPAP at home. PLAN: continue the patient on , Levquin and Zosyn d# 5 / 10 ( 10/16 SP vancomycin d# 3) Monitor CBC , BMP Monitor cultures (blood ) vent support Subjective Constitutional: Denies: anorexia, chills, drenching sweats, fatigue, fever, no symptoms, other Allergies: Coded Allergies: No Known Allergies (Unverified , 10/14/16) Subjective on vent Objective Vital Signs Last 24 Hour Vital Signs Date Time Temp Pulse Resp B/P Pulse Ox O2 Delivery O2 Flow Rate FiO2 10/18/16 10:00 81 20 132/64 100 Mechanical Ventilator 40 10/18/16 09:30 99 10/18/16 09:30 87 20 40 10/18/16 09:00 80 20 129/63 100 Mechanical Ventilator 40 10/18/16 08:00 40 10/18/16 08:00 79 20 122/64 100 Mechanical Ventilator 40 10/18/16 08:00 85 10/18/16 07:30 84 21 40 10/18/16 07:00 88 20 142/58 100 Mechanical Ventilator 40 10/18/16 06:00 80 20 134/54 100 Mechanical Ventilator 10/18/16 05:00 84 22 118/52 100 Mechanical Ventilator 10/18/16 04:51 86 20 40 10/18/16 04:14 88 10/18/16 04:13 40 10/18/16 04:00 99.0 88 22 127/61 100 Mechanical Ventilator 40 10/18/16 03:12 82 20 40 10/18/16 03:00 83 20 125/55 100 Mechanical Ventilator 40 10/18/16 02:00 85 23 133/59 100 Mechanical Ventilator 40 10/18/16 01:00 84 21 125/56 100 Mechanical Ventilator 40 10/18/16 00:47 85 20 40 10/18/16 00:24 90 10/18/16 00:23 40 10/18/16 00:00 99.9 90 25 133/63 100 Mechanical Ventilator 40 10/17/16 23:06 88 20 40 10/17/16 23:00 85 19 124/59 100 Mechanical Ventilator 40 10/17/16 22:07 Mechanical Ventilator 15.0 40 10/17/16 22:00 Mechanical Ventilator 40 10/17/16 22:00 87 20 126/59 100 Mechanical Ventilator 40 10/17/16 21:06 99 28 40 10/17/16 21:00 90 20 134/58 100 Mechanical Ventilator 40 10/17/16 20:00 40 10/17/16 20:00 98 10/17/16 20:00 98.2 97 19 157/60 100 Mechanical Ventilator 40 10/17/16 19:29 92 20 40 10/17/16 19:00 84 20 152/82 100 Mechanical Ventilator 40 10/17/16 18:50 Mechanical Ventilator 40 10/17/16 18:00 84 20 140/82 100 Mechanical Ventilator 40 10/17/16 17:24 90 20 40 10/17/16 17:00 92 19 115/54 100 Mechanical Ventilator 40 10/17/16 16:00 98.1 83 20 133/53 100 Mechanical Ventilator 40 10/17/16 16:00 40 10/17/16 16:00 88 10/17/16 15:00 78 20 117/55 100 Mechanical Ventilator 40 10/17/16 14:53 83 21 40 10/17/16 14:00 82 20 126/63 100 Mechanical Ventilator 40 10/17/16 13:00 88 20 143/65 100 Mechanical Ventilator 40 10/17/16 12:55 81 17 40 10/17/16 12:00 40 10/17/16 12:00 97.9 81 20 138/68 100 Mechanical Ventilator 40 10/17/16 12:00 85 Height (Feet): 5 Height (Inches): 6.00 Weight (Pounds): 140 HEENT: atraumatic Respiratory/Chest: accessory muscle use Cardiovascular: normal rate Abdomen: soft, non tender, no organomegaly Microbiology Date/Time Source Procedure Growth Status 10/15/16 22:00 Sputum Gram Stain - Final Complete 10/15/16 22:00 Sputum Sputum Culture - Final NO GROWTH AFTER 48 HOURS Complete Laboratory Tests Test 10/18/16 04:45 10/18/16 09:18 White Blood Count 8.3 K/UL (4.8-10.8) Red Blood Count 2.72 M/UL (4.70-6.10) L Hemoglobin 8.0 G/DL (14.2-18.0) L Hematocrit 25.0 % (42.0-52.0) L Mean Corpuscular Volume 92 FL (80-99) Mean Corpuscular Hemoglobin 29.4 PG (27.0-31.0) Mean Corpuscular Hemoglobin Concent 31.9 G/DL (32.0-36.0) L Red Cell Distribution Width 12.9 % (11.6-14.8) Platelet Count 166 K/UL (150-450) Mean Platelet Volume 9.7 FL (6.5-10.1) Neutrophils (%) (Auto) 61.8 % (45.0-75.0) Lymphocytes (%) (Auto) 23.3 % (20.0-45.0) Monocytes (%) (Auto) 13.7 % (1.0-10.0) H Eosinophils (%) (Auto) 0.5 % (0.0-3.0) Basophils (%) (Auto) 0.7 % (0.0-2.0) Sodium Level 137 mEQ/L (135-145) # Potassium Level 2.7 mEQ/L (3.4-4.9) *L Chloride Level 91 mEQ/L (98-107) L Carbon Dioxide Level 31 mEQ/L (20-30) H Anion Gap 15 (5-15) Blood Urea Nitrogen 44 mg/dL (7-23) H Creatinine 4.8 mg/dL (0.7-1.2) H Estimat Glomerular Filtration Rate 14.8 mL/min (>60) Glucose Level 143 mg/dL (74-106) H Calcium Level 7.3 mg/dL (8.6-10.2) L Phosphorus Level 2.0 mg/dL (2.5-4.8) L Magnesium Level 1.6 mg/dL (1.7-2.5) L Total Bilirubin 0.6 mg/dL (0.0-1.2) Aspartate Amino Transf (AST/SGOT) 31 U/L (5-40) Alanine Aminotransferase (ALT/SGPT) 20 U/L (3-41) Alkaline Phosphatase 45 U/L (40-129) Troponin I 0.62 ng/mL (<=0.30) *H Total Protein 5.4 g/dL (6.6-8.7) L Albumin 2.1 g/dL (3.5-5.2) L Globulin 3.3 g/dL Albumin/Globulin Ratio 0.6 (1.0-2.7) L Arterial Blood pH 7.496 (7.350-7.450) Arterial Blood Partial Pressure CO2 45.0 mmHg (35.0-45.0) Arterial Blood Partial Pressure O2 90.0 mmHg (75.0-100.0) Arterial Blood HCO3 34.0 mmol/L (22.0-26.0) H Arterial Blood Oxygen Saturation 97.0 % (92.0-98.0) Arterial Blood Base Excess 9.8 Hi Test Positive Current Medications Medications (Trade) Dose Ordered Sig/Obie Route PRN Reason Start Time Stop Time Status Last Admin Dose Admin Acetaminophen (Tylenol) 650 mg Q4H PRN ORAL fever 10/14/16 17:30 11/13/16 17:29 10/16/16 13:19 Al Hydroxide/Mg Hydroxide (Mylanta II) 30 ml Q6H PRN ORAL dyspepsia 10/14/16 17:30 11/13/16 17:29 Albuterol/ Ipratropium (DuoNeb 0.5-3(2.5)mg/3ml) 3 ml Q4H PRN HHN Shortness of Breath 10/14/16 17:30 10/19/16 17:29 Clopidogrel Bisulfate (Plavix) 75 mg DAILY ORAL 10/15/16 09:00 11/14/16 08:59 10/18/16 08:56 Dextrose (Dextrose 50%) STAT PRN IV Hypoglycemia 10/14/16 17:30 11/13/16 17:29 Heparin Sodium (Porcine) (Heparin 5000 units/ml) 5,000 units EVERY 12 HOURS SUBQ 10/14/16 21:00 11/13/16 20:59 10/18/16 08:58 Insulin Aspart EVERY 6 HOURS SUBQ 10/16/16 12:00 11/15/16 11:59 10/18/16 06:13 Levofloxacin 100 ml @ 100 mls/hr Q48H IVPB 10/17/16 12:00 10/24/16 11:59 10/17/16 12:40 Levofloxacin (Levaquin) 50 ml @ 50 mls/hr Q48H IVPB 10/18/16 18:00 10/25/16 17:59 Nitroglycerin (Ntg) 0.4 mg Q5MIN X 3 DOSES PRN SL Prn Chest Pain 10/14/16 17:30 11/13/16 17:29 Ondansetron HCl (Zofran) 4 mg Q6H PRN IVP Nausea & Vomiting 10/14/16 17:30 11/13/16 17:29 Phenobarbital (PHENobarbital) 32.4 mg THREE TIMES A DAY ORAL 10/14/16 18:00 11/13/16 17:59 10/18/16 08:56 Phenytoin (Dilantin) 300 mg DAILY ORAL 10/18/16 09:00 11/17/16 08:59 10/18/16 08:56 Piperacillin Sod/ Tazobactam Sod 2.25 gm/Dextrose 55 ml @ 110 mls/hr Q8HR IV 10/17/16 16:00 10/22/16 15:59 10/18/16 06:11 Polyethylene Glycol (Miralax) 17 gm DAILYPRN PRN ORAL Constipation 10/14/16 17:30 11/13/16 17:29 Potassium Chloride (KCl 10% 20 mEq oral solution) 20 meq ONCE ONCE NG 10/18/16 12:00 10/18/16 12:01 Sodium Chloride 1,000 ml @ 500 mls/hr Q2H PRN IVLG sbp<90 during hd 10/18/16 11:37 11/17/16 11:36 SOM PEREZ M.D. Oct 18, 2016 11:14
[2016-10-18] MEDS ORDERED: KCl 10% 20 mEq/15ml liquid NG ONE (12:00)
--- NOTE | 2016-10-18 12:28 | Nephrology Progress Note ---
Assessment/Plan Problem List: (1) ARF (acute renal failure) Assessment: oliguric (2) NSTEMI (non-ST elevated myocardial infarction) (3) Elevated troponin (4) Respiratory failure, acute (5) Hypokalemia Assessment: from diarrhea (6) Diarrhea Assessment: resolved Plan HD in AM with more UF Replete K and Mag follow labs Discussed with RN Subjective Subjective Remains intubated awake failed weaning Objective Objective Last 24 Hour Vital Signs Date Time Temp Pulse Resp B/P Pulse Ox O2 Delivery O2 Flow Rate FiO2 10/18/16 11:30 82 21 40 10/18/16 11:00 79 20 130/57 100 Mechanical Ventilator 40 10/18/16 10:00 81 20 132/64 100 Mechanical Ventilator 40 10/18/16 09:30 99 10/18/16 09:30 87 20 40 10/18/16 09:00 80 20 129/63 100 Mechanical Ventilator 40 10/18/16 08:00 40 10/18/16 08:00 79 20 122/64 100 Mechanical Ventilator 40 10/18/16 08:00 85 10/18/16 07:30 84 21 40 10/18/16 07:00 88 20 142/58 100 Mechanical Ventilator 40 10/18/16 06:00 80 20 134/54 100 Mechanical Ventilator 10/18/16 05:00 84 22 118/52 100 Mechanical Ventilator 10/18/16 04:51 86 20 40 10/18/16 04:14 88 10/18/16 04:13 40 10/18/16 04:00 99.0 88 22 127/61 100 Mechanical Ventilator 40 10/18/16 03:12 82 20 40 10/18/16 03:00 83 20 125/55 100 Mechanical Ventilator 40 10/18/16 02:00 85 23 133/59 100 Mechanical Ventilator 40 10/18/16 01:00 84 21 125/56 100 Mechanical Ventilator 40 10/18/16 00:47 85 20 40 10/18/16 00:24 90 10/18/16 00:23 40 10/18/16 00:00 99.9 90 25 133/63 100 Mechanical Ventilator 40 10/17/16 23:06 88 20 40 10/17/16 23:00 85 19 124/59 100 Mechanical Ventilator 40 10/17/16 22:07 Mechanical Ventilator 15.0 40 10/17/16 22:00 Mechanical Ventilator 40 10/17/16 22:00 87 20 126/59 100 Mechanical Ventilator 40 10/17/16 21:06 99 28 40 10/17/16 21:00 90 20 134/58 100 Mechanical Ventilator 40 10/17/16 20:00 40 10/17/16 20:00 98 10/17/16 20:00 98.2 97 19 157/60 100 Mechanical Ventilator 40 10/17/16 19:29 92 20 40 10/17/16 19:00 84 20 152/82 100 Mechanical Ventilator 40 10/17/16 18:50 Mechanical Ventilator 40 10/17/16 18:00 84 20 140/82 100 Mechanical Ventilator 40 10/17/16 17:24 90 20 40 10/17/16 17:00 92 19 115/54 100 Mechanical Ventilator 40 10/17/16 16:00 98.1 83 20 133/53 100 Mechanical Ventilator 40 10/17/16 16:00 40 10/17/16 16:00 88 10/17/16 15:00 78 20 117/55 100 Mechanical Ventilator 40 10/17/16 14:53 83 21 40 10/17/16 14:00 82 20 126/63 100 Mechanical Ventilator 40 10/17/16 13:00 88 20 143/65 100 Mechanical Ventilator 40 10/17/16 12:55 81 17 40 Intake and Output 10/17/16 10/18/16 19:00 07:00 Intake Total 1455 ml 1180 ml Output Total 0 ml 0 ml Balance 1455 ml 1180 ml IV Total 1455 ml 1160 ml Tube Feeding 20 ml Output Urine Total 0 ml 0 ml Hemodialysis UF 0 ml # Bowel Movements 1 3 Laboratory Tests 10/18/16 04:45: White Blood Count 8.3, Red Blood Count 2.72L, Hemoglobin 8.0L, Hematocrit 25.0L , Mean Corpuscular Volume 92, Mean Corpuscular Hemoglobin 29.4, Mean Corpuscular Hemoglobin Concent 31.9L, Red Cell Distribution Width 12.9, Platelet Count 166, Mean Platelet Volume 9.7, Neutrophils (%) (Auto) 61.8, Lymphocytes (%) (Auto) 23.3, Monocytes (%) (Auto) 13.7H, Eosinophils (%) (Auto) 0.5, Basophils (%) (Auto) 0.7, Sodium Level 137#, Potassium Level 2.7*L, Chloride Level 91L, Carbon Dioxide Level 31H, Anion Gap 15, Blood Urea Nitrogen 44H, Creatinine 4.8H, Estimat Glomerular Filtration Rate 14.8, Glucose Level 143H, Calcium Level 7.3L, Phosphorus Level 2.0L, Magnesium Level 1.6L, Total Bilirubin 0.6, Aspartate Amino Transf (AST/SGOT) 31, Alanine Aminotransferase ( ALT/SGPT) 20, Alkaline Phosphatase 45, Troponin I 0.62*H, Total Protein 5.4L, Albumin 2.1L, Globulin 3.3, Albumin/Globulin Ratio 0.6L 10/18/16 09:18: Arterial Blood pH 7.496H, Arterial Blood Partial Pressure CO2 45.0, Arterial Blood Partial Pressure O2 90.0, Arterial Blood HCO3 34.0H, Arterial Blood Oxygen Saturation 97.0, Arterial Blood Base Excess 9.8, Hi Test Positive Height (Feet): 5 Height (Inches): 6.00 Weight (Pounds): 140 Cardiovascular: normal rate Respiratory/Chest: rhonchi - bilaterally Extremities: severe edema SCOUT [place] Oct 18, 2016 12:28
[2016-10-18] MEDS ORDERED: Heparin Sod 1000 units/ml 10ml IV PRN (13:00)
--- NOTE | 2016-10-18 13:55 | Diagnostic Imaging Report ---
Indication: Dyspnea Comparison: 10/17/2016 A single view chest radiograph was obtained. Findings: CHF may have improved slightly since the last study. Cardiomegaly remains. Right jugular line has been placed and is in good position. Impression: Right jugular [place] catheter in good position. CHF slightly improved
--- NOTE | 2016-10-18 15:37 | Internal Med Progress Note ---
Subjective Physician Name Bubba Osullivan Attending Physician Bubba Osullivan MD Current Medications Medications (Trade) Dose Ordered Sig/Obie Route PRN Reason Start Time Stop Time Status Last Admin Dose Admin Acetaminophen (Tylenol) 650 mg Q4H PRN ORAL fever 10/14/16 17:30 11/13/16 17:29 10/16/16 13:19 Al Hydroxide/Mg Hydroxide (Mylanta II) 30 ml Q6H PRN ORAL dyspepsia 10/14/16 17:30 11/13/16 17:29 Albuterol/ Ipratropium (DuoNeb 0.5-3(2.5)mg/3ml) 3 ml Q4H PRN HHN Shortness of Breath 10/14/16 17:30 10/19/16 17:29 Clopidogrel Bisulfate (Plavix) 75 mg DAILY ORAL 10/15/16 09:00 11/14/16 08:59 10/18/16 08:56 Dextrose (Dextrose 50%) STAT PRN IV Hypoglycemia 10/14/16 17:30 11/13/16 17:29 Heparin Sodium (Porcine) (Heparin 5000 units/ml) 5,000 units EVERY 12 HOURS SUBQ 10/14/16 21:00 11/13/16 20:59 10/18/16 08:58 Heparin Sodium (Porcine) (Heparin Sod 1000 units/ml 10ml) 500 unit ONCE PRN IV FOR HD USE ONLY 10/18/16 13:00 10/19/16 23:59 Insulin Aspart EVERY 6 HOURS SUBQ 10/16/16 12:00 11/15/16 11:59 10/18/16 12:21 Levofloxacin (Levaquin) 50 ml @ 50 mls/hr Q48H IVPB 10/18/16 18:00 10/25/16 17:59 Nitroglycerin (Ntg) 0.4 mg Q5MIN X 3 DOSES PRN SL Prn Chest Pain 10/14/16 17:30 11/13/16 17:29 Ondansetron HCl (Zofran) 4 mg Q6H PRN IVP Nausea & Vomiting 10/14/16 17:30 11/13/16 17:29 Phenobarbital (PHENobarbital) 32.4 mg THREE TIMES A DAY ORAL 10/14/16 18:00 11/13/16 17:59 10/18/16 12:19 Phenytoin 300 mg 300 mg DAILY ORAL 10/18/16 09:00 11/17/16 08:59 10/18/16 08:56 Piperacillin Sod/ Tazobactam Sod 2.25 gm/Dextrose 55 ml @ 110 mls/hr Q8HR IV 10/17/16 16:00 10/22/16 15:59 10/18/16 14:22 Polyethylene Glycol (Miralax) 17 gm DAILYPRN PRN ORAL Constipation 10/14/16 17:30 11/13/16 17:29 Sodium Chloride (Sodium Chloride 1000ml bag) 1,000 ml @ 500 mls/hr Q2H PRN IVLG sbp<90 during hd 10/19/16 12:28 10/19/16 23:59 Allergies: Coded Allergies: No Known Allergies (Unverified , 10/14/16) Subjective Awake, responsive, open eyes, intubated on ventilation Objective Last Vital Signs Date Time Temp Pulse Resp B/P Pulse Ox O2 Delivery O2 Flow Rate FiO2 10/18/16 15:00 87 20 40 10/18/16 11:00 130/57 100 Mechanical Ventilator 10/18/16 04:00 99.0 10/17/16 22:07 15.0 Laboratory Tests Test 10/18/16 04:45 10/18/16 09:18 White Blood Count 8.3 K/UL (4.8-10.8) Red Blood Count 2.72 M/UL (4.70-6.10) L Hemoglobin 8.0 G/DL (14.2-18.0) L Hematocrit 25.0 % (42.0-52.0) L Mean Corpuscular Volume 92 FL (80-99) Mean Corpuscular Hemoglobin 29.4 PG (27.0-31.0) Mean Corpuscular Hemoglobin Concent 31.9 G/DL (32.0-36.0) L Red Cell Distribution Width 12.9 % (11.6-14.8) Platelet Count 166 K/UL (150-450) Mean Platelet Volume 9.7 FL (6.5-10.1) Neutrophils (%) (Auto) 61.8 % (45.0-75.0) Lymphocytes (%) (Auto) 23.3 % (20.0-45.0) Monocytes (%) (Auto) 13.7 % (1.0-10.0) H Eosinophils (%) (Auto) 0.5 % (0.0-3.0) Basophils (%) (Auto) 0.7 % (0.0-2.0) Sodium Level 137 mEQ/L (135-145) # Potassium Level 2.7 mEQ/L (3.4-4.9) *L Chloride Level 91 mEQ/L (98-107) L Carbon Dioxide Level 31 mEQ/L (20-30) H Anion Gap 15 (5-15) Blood Urea Nitrogen 44 mg/dL (7-23) H Creatinine 4.8 mg/dL (0.7-1.2) H Estimat Glomerular Filtration Rate 14.8 mL/min (>60) Glucose Level 143 mg/dL (74-106) H Calcium Level 7.3 mg/dL (8.6-10.2) L Phosphorus Level 2.0 mg/dL (2.5-4.8) L Magnesium Level 1.6 mg/dL (1.7-2.5) L Total Bilirubin 0.6 mg/dL (0.0-1.2) Aspartate Amino Transf (AST/SGOT) 31 U/L (5-40) Alanine Aminotransferase (ALT/SGPT) 20 U/L (3-41) Alkaline Phosphatase 45 U/L (40-129) Troponin I 0.62 ng/mL (<=0.30) *H Total Protein 5.4 g/dL (6.6-8.7) L Albumin 2.1 g/dL (3.5-5.2) L Globulin 3.3 g/dL Albumin/Globulin Ratio 0.6 (1.0-2.7) L Arterial Blood pH 7.496 (7.350-7.450) Arterial Blood Partial Pressure CO2 45.0 mmHg (35.0-45.0) Arterial Blood Partial Pressure O2 90.0 mmHg (75.0-100.0) Arterial Blood HCO3 34.0 mmol/L (22.0-26.0) H Arterial Blood Oxygen Saturation 97.0 % (92.0-98.0) Arterial Blood Base Excess 9.8 Hi Test Positive Microbiology Date/Time Source Procedure Growth Status 10/15/16 22:00 Sputum Gram Stain - Final Complete 10/15/16 22:00 Sputum Sputum Culture - Final NO GROWTH AFTER 48 HOURS Complete Intake and Output 10/17/16 10/18/16 19:00 07:00 Intake Total 1455 ml 1180 ml Output Total 0 ml 0 ml Balance 1455 ml 1180 ml IV Total 1455 ml 1160 ml Tube Feeding 20 ml Output Urine Total 0 ml 0 ml Hemodialysis UF 0 ml # Bowel Movements 1 3 Objective GENERAL: Awake, alert, responsive, intubated HEAD AND NECK: Pupils are reactive to light and anicteric. ET Tube, OG Tube. NECK: Supple. No JVD. Right IJ dialysis cath. LUNGS: Good air entry, bilateral breath sounds. No wheezes. HEART: Reveals S1 and S2 RR No murmur or gallop. ABDOMEN: Soft, nondistended, and nontender. Positive betzaida sounds. : Hein cath EXTREMITIES: No cyanosis, clubbing, UE's edema. NEUROLOGIC: Cranial nerves II through XII are grossly intact. moving all extremities spontaneously Assessment/Plan Assessment/Plan 1. Acute respiratory failure with hypoxemic respiratory failure. 2. Acute kidney injury and chronic on HD. 3. Diabetic type 2. 4. Hypertension. 5. History of cerebrovascular accident with transient ischemic attack. 6. Sepsis due to Pneumonia / aspiration Pneumonia. 7. Toxic metabolic encephalopathy with altered mental status. 8. History of seizure disorder. PLAN: in Intensive care unit. Monitor laboratory and Cultures. Broad-spectrum antibiotic, vancomycin, Zosyn, and Levaquin. We will follow up with a nebulizer treatment Follow up with the laboratory. Accu-Chek with sliding scale. Seizure precautions. Code status is Full Code. DVT prophylaxis. Heparin subcutaneous. May transfer to [facility] Via [facility] transportation. Bubba Osullivan MD Oct 18, 2016 15:37
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
[2016-10-18] MEDS ORDERED: Levofloxacin 250mg/D5W 50ml IVPB SCH (18:00)
[2016-10-18] MEDS ORDERED: Tubing IV Secondary IV ONE (19:29)
--- NOTE | 2016-10-21 08:48 | Cardiology Report ---
APPROVED REPORT EKG Measurement Heart [id number] Normal sinus rhythm Septal infarct, age undetermined Abnormal ECG
--- NOTE | 2016-10-21 12:00 | Discharge Summary ---
Discharge Summary Hospital Course Date of Admission Oct 14, 2016 at 15:11 Date of Discharge Oct 18, 2016 at 19:30 Admitting Diagnosis ams, resp. failure, pneumonia HPI Jacob Arteaga is a 70 year old male who was admitted on Oct 14, 2016 at 15:11 for Altered Mental Status,Respiratory Failure, Hospital Course dc summary # [id number] Discharge Medications New Medications: Heparin Sod (Porcine) (Heparin Sodium*) 5 000/1 Ml Vial 5000 UNITS SUBQ EVERY 12 HOURS, #20 VIAL Jssupxsgrnyi-Yupq-Anypghcr,Iso (Zosyn 3.375 Gm Pre Mix-Bag) 3.375 Gm/50 Ml Froz.piggy 3.375 GM IVPB EVERY 8 HOURS, #9 BAG Vancomycin Hcl/D5w (Vancomycin-D5w 1 G/250 Ml) 1 Gm/250 Ml Plast..bag 750 MG IVPB Q24H, #3 BAG Continued Medications: Amlodipine Besylate* (Amlodipine Besylate*) 10 Mg Tablet 10 MG ORAL DAILY, TAB Atorvastatin Calcium* (Atorvastatin Calcium*) 20 Mg Tablet 20 MG ORAL BEDTIME, TAB Clopidogrel* (Clopidogrel*) 75 Mg Tablet 75 MG ORAL DAILY, TAB Phenobarbital* (Phenobarbital*) 30 Mg Tablet 32.4 MG ORAL THREE TIMES A DAY, #30 TAB 0 Refills Phenytoin (Phenytoin*) 100 Mg/4 Ml Oral.susp 100 MG ORAL TID, ML 0 Refills Ranitidine Hcl* (Zantac*) 150 Mg Tablet 150 MG ORAL TWICE A DAY, TAB Risperidone* (Risperdal*) 1 Mg Tablet 1 MG PO DAILY, TAB Discharge Condition Upon Discharge: critical Discharge Disposition Patient was transferred to [place] ICU via [facility] Discharge Diagnoses: Discharge Instructions Discharge Instructions Special Instructions I have been assigned to complete a D/C Summary on this account. I was not involved in the patient management Dania Lyn NP (Vanchtein) Oct 21, 2016 12:00
--- NOTE | 2016-10-22 00:08 | Discharge Summary 2 SIG ---
DATE OF ADMISSION: 10/14/2016 DATE OF DISCHARGE: 10/18/2016 REASON FOR ADMISSION: 70-year-old male presented to the emergency room complaining of shortness of breath and increased weakness for the last two days. The patient had a stroke 1 month ago and treated at [facility] , subsequently was discharged home. According to the who was at the bedside, the patient regained most of his strength after the stroke. Upon arrival, the patient stated that he felt short of breath. He denied chest pain. Denied palpitations. Denied fever or chills. Chest x-ray was consistent with infiltrate, right lower lobe. The patient was tachycardic and tachypneic. Pulse - 113, respiration - 43, low-grade fever of 100.8 and later up to 102. The patient was immediately placed on 100% nonrebreathing mask and later on BiPAP. EKG revealed sinus tachycardia. No acute ischemic changes. Lactic acid was within normal limits. Troponin was negative. The patient also had evidence of renal insufficiency with creatinine of 1.3 and BUN of 33. Pro BNP was 536. CK - 4581. The patient presented with leukocytosis of 17. ADMITTING DIAGNOSES: 1. Pneumonia. 2. Acute renal failure/acute kidney injury on chronic renal insufficiency. 3. Acute respiratory failure, requiring BiPAP 4. Recent history of CVA. HOSPITAL COURSE: The patient was admitted to [facility] on the BiPAP. Pulmonary toilet provided. The patient was started on broad-spectrum antibiotics. However, respiratory status deteriorated and in the evening on 10/15/2016 ABG revealed acute respiratory acidosis with hypercapnia. The patient required oral intubation and transferred to ICU for further management. Patient was hypotensive and required pressors. Homebound Teacher followed Pressors were finally discontinued. Renal parameters were getting worse. Creatinine up to 5.2 on 10/17/2016. Decision was made to start the patient on dialysis. Permanent hemodialysis catheter was inserted. Patient Account Specialist followed. The patient was started on hemodialysis with ultrafiltration. Renal parameters and electrolytes were monitored and replaced as needed. Urine for eosinophil negative. Thus, no evidence of acute interstitial nephritis. Acute renal failure , requiring hemodialysis was likely secondary to septic shock. In terms of the troponin, the patient was noted to have initial troponin negative, but elevated troponin on 10/16/2016- 0.95 and on 10/17/2016 - 0.99, and on 05/2017 started to trend down to 0.62. According to car retarder operator who was involved in care of this patient, the patient had troponin leak secondary to renal failure. EKG revealed no acute ischemic changes. The patient was on empiric antibiotics. All cultures were negative. Blood sugar was managed with sliding scale of insulin. The patient with a history of seizure disorder. No seizure activity while in the hospital. Dilantin and Phenobarbital were continued. Follow up with levels. The patient was stable for transfer to [facility] for further ordered via [facility]. DISCHARGE DIAGNOSES: 1. Septic shock. 2. Troponin leak secondary to renal failure. 3. Sepsis. 4. Pneumonia, possible aspiration. 5. Acute renal failure/acute tubular necrosis on chronic renal insufficiency. 6. Acute hypoxemic hypercapnic respiratory failure, requiring intubation. 7. Recent history of cerebrovascular accident. 8. Diabetes mellitus. 9. Hypertension. 10. Toxic metabolic encephalopathy. 11. History of seizure disorder. 12. Severe chronic obstructive pulmonary disease. DISCHARGE MEDICATIONS: See medication reconciliation list. DISCHARGE INSTRUCTIONS: The patient was transferred to [facility] via [facility] for further management. Bubba Osullivan M.D. I have been assigned to dictate discharge summary on this account and I was not involved in the patient's management. Dania Roldanevaritso) N.PTheresa DR: CARO JOB#: [id number] CC: [place]
--- NOTE | 2016-11-13 14:09 | Diagnostic Imaging Report ---
Indication: Shortness of breath Technique: One view of the chest Comparison: none Findings: There is a moderate sized right-sided pleural effusion. There is some atelectasis and possibly some consolidation at the right lung base. Right upper lung, left lung and pleural space are clear. Heart size is borderline enlarged. Aorta is calcified Impression: Right-sided pleural effusion. Possible right basilar consolidation and/or atelectasis
== END 2016-10-18 19:30 | disposition short-term general hospital (02) | DRG 871 ==
LOC: EDBD 13:29 → EDBEDREQ 13:50 → EMR 14:21 → EDBEDREQSVC 15:10 → ICU 15:11 → EDBEDREQ 15:11 → ICU 17:05
PROC: 5A09457 Assistance with Respiratory Ventilation, 24-96 Consecutive Hours, Continuous Positive Airway Pressure (ICD-10-PCS; 2016-10-14)
PROC: 0BH17EZ Insertion of Endotracheal Airway into Trachea, Via Natural or Artificial Opening (ICD-10-PCS; 2016-10-15)
PROC: 5A1945Z Respiratory Ventilation, 24-96 Consecutive Hours (ICD-10-PCS; 2016-10-15)
PROC: 02HV33Z Insertion of Infusion Device into Superior Vena Cava, Percutaneous Approach (ICD-10-PCS; principal; 2016-10-17)
PROC: 5A1D00Z (ICD-10-PCS; principal; 2016-10-17)
DX: A41.9 Sepsis, unspecified organism (principal); J18.9 Pneumonia, unspecified organism; R65.21 Severe sepsis with septic shock; J96.01 Acute respiratory failure with hypoxia; J96.02 Acute respiratory failure with hypercapnia; G92 Toxic encephalopathy; J44.9 Chronic obstructive pulmonary disease, unspecified; I69.959 Hemiplegia and hemiparesis following unspecified cerebrovascular disease affecting unspecified side; I12.9 Hypertensive chronic kidney disease with stage 1 through stage 4 chronic kidney disease, or unspecified chronic kidney disease; N18.9 Chronic kidney disease, unspecified; Z86.73 Personal history of transient ischemic attack (TIA), and cerebral infarction without residual deficits; E11.9 Type 2 diabetes mellitus without complications; G40.909 Epilepsy, unspecified, not intractable, without status epilepticus; W34.00XS Accidental discharge from unspecified firearms or gun, sequela; Z18.89 Other specified retained foreign body fragments
CPT/HCPCS: 36415; 36569; 36600; 70450; 71010; 76775; 76937; 80048; 80053; 80069; 80202; 81003; 82164; 82550; 82553; 82803; 82962; 83605; 83735; 83880; 84100; 84484; 85007; 85025; 85610; 85730; 87040; 87070; 87081; 87086; 87205; 89050; 93005; 93306; 94002; 94003; 94660; 94664; J1815; J2405